=== PATIENT | female | born 1935 | race Caucasian/White ===

== ENCOUNTER 2016-09-03 19:39 | Emergency (ER) | payer BC ==
[2016-09-03 19:45] VITALS: BP 118/67; PULSE 73; TEMP 98; BMI 30.2
--- NOTE | 2016-09-03 19:52 | PDOC ---
History of Present Illness - General History Source: Patient Exam Limitations: No Limitations - History of Present Illness Initial Comments: 09/03/16 19:59 The patient is a 80 year old female with a significant past medical history of COPD, kidney infections, thyroid disease, pneumonia, and GOUT, who presents to the ED with worsening left sided flank pain. She states the flank pain radiates to the lower left quadrant. Patient states the pain is intermittent and is worse when walking. She states she has dark urine as well. She states she took 3 Aleves today with no alleviation. She denies dysuria, frequency, urgency. She denies fever, chills, nausea, vomiting. PAST MEDICAL HISTORY: COPD, kidney infections, thyroid disease, pneumonia, and GOUT PAST SURGICAL HISTORY: no significant history FAMILY HISTORY: no pertinent history SOCIAL HISTORY: Pt lives with family and is employed. MEDICATIONS: reviewed ALLERGIES: As per nursing notes ROS General: No fevers or chills, no weakness, no weight loss HEENT: No change in vision. No sore throat,. No ear pain CardioVascular: No chest pain or shortness of breath Respiratory:No cough, or wheezing. Gastrointestinal: no nausea, vomiting, diarrhea or constipation, No rectal bleeding Genitourinary: No dysuria, hematuria, or frequency. Musculoskeletal: No joint or muscle pain or swelling Back: Left flank pain that radiates to the left lower quadrant. Neurologic: No headache, vertigo, dizziness or loss of consciousness Psychiatric: nor depression Skin: No rashes or easy bruising Endocrine: no increased thirst or abnormal weight change Allergic: no skin or latex allergy All other systems reviewed and normal Exam: General: Well-nourished well-developed individual, no acute distress HEENT: Throat: Normal, tonsils normal, no erythema or exudate Neck: Supple, no meningeal signs, no lymphadenopathy Eyes::Pupils equal reactive and round, extraocular motion intact Chest: Nontender to palpation Cardiac: S1-S2 normal, regular rate and rhythm, no murmurs rubs or gallops Respiratory: Lungs clear to auscultation bilateral Abdomen: Left lower quadrant abdominal tenderness. Soft, nondistended, normal bowel sounds. Back: No cva tenderness. Left flank tenderness. Extremities: Warm, dry, no cyanosis, clubbing, or edema Skin: No rashes Neuro: Alert and oriented x3, nonfocal exam, grossly intact, normal gait Psych: Normal mood and affect <Nolberto Joiner - Last Filed: 09/03/16 19:59> - General History Source: Patient Exam Limitations: No Limitations - History of Present Illness Initial Comments: 09/03/16 22:17 A portion of this note was documented by scribe services under my direction. I have reviewed the details of the note, within reason, and agree with the documentation. The case summary and management plan written by me. CT scan no acute pathology there is some scoliosis of the lower lumbar spine with some spondylosis. There is no obstructive uropathy There is some diverticula but no by diverticulitis The appendix is normal. There is a small stone within the right kidney lower pole that is nonobstructing and a small cyst in the left kidney. Assessment and plan: This is a 8-year-old female who comes complaining of low back left sided flank pain. The patient's workup was negative for renal causes or kidney stones. However patient does have some scoliosis and spondylosis that is most likely the cause of her pain. I recommended the patient continued to take her Aleve twice a day and in addition to that can also take some Tylenol and follow-up with her doctor next week <Pankaj Deras I - Last Filed: 09/03/16 22:21> - General Chief Complaint: Pain, Acute Stated Complaint: LT BACK/FLANK PAIN Time Seen by Provider: 09/03/16 19:51 Past History <Nolberto Joiner - Last Filed: 09/03/16 19:59> - Past Medical History COPD: Yes Disorders: Yes (KIDNEY INFECTIONS) Thyroid Disease: Yes Other medical history: PNEUMONIA, GOUT, - Psycho/Social/Smoking Cessation Hx Anxiety: Yes (PRESENTLY) Suicidal Ideation: No Smoking History: Former smoker Have you smoked in the past 12 months: No Information on smoking cessation initiated: No <Pankaj Deras I - Last Filed: 09/03/16 22:21> - Past Medical History Allergies/Adverse Reactions: Allergies Allergy/AdvReac Type Severity Reaction Status Date / Time No Known Allergies Allergy Unverified 09/03/16 19:41 Home Medications: Ambulatory Orders Aspirin [Ecotrin] 81 mg PO DAILY 09/03/16 Levothyroxine [Synthroid -] 50 mcg PO DAILY 09/03/16 Metoprolol Succinate [Toprol Xl] 50 mg PO DAILY 09/03/16 Review of Systems - Review of Systems Able to Perform ROS?: Yes <Nolberto Joiner - Last Filed: 09/03/16 19:59> *Physical Exam - Vital Signs Last Vital Signs Temp Pulse Resp BP Pulse Ox 98 F 73 18 118/67 98 09/03/16 19:42 09/03/16 19:42 09/03/16 19:42 09/03/16 19:42 09/03/16 19:42 <Nolberto Joiner - Last Filed: 09/03/16 19:59> - Vital Signs Last Vital Signs Temp Pulse Resp BP Pulse Ox 98 F 73 18 118/67 98 09/03/16 19:42 09/03/16 19:42 09/03/16 19:42 09/03/16 19:42 09/03/16 19:42 <Pankaj Deras I - Last Filed: 09/03/16 22:21> ED Treatment Course - LABORATORY CBC & Chemistry Diagram: 09/03/16 20:05 09/03/16 20:05 <Pankaj Deras I - Last Filed: 09/03/16 22:21> *DC/Admit/Observation/Transfer - Attestations Scribe Attestion: 09/03/16 20:01 Documentation prepared by Nolberto Joiner, acting as medical safety director for Pankaj Deras MD. <Nolberto Joiner - Last Filed: 09/03/16 19:59> - Discharge Dispostion Admit: No <Pankaj Deras I - Last Filed: 09/03/16 22:21> Diagnosis at time of Disposition: Left-sided low back pain without sciatica Qualifiers: Chronicity: chronic Qualified Code(s): M54.5 - Low back pain; G89.29 - Other chronic pain - Discharge Dispostion Disposition: HOME Condition at time of disposition: Stable - Referrals Referrals: Luzma Santiago MD [Primary Care Provider] - - Patient Instructions Additional Instructions: For the pain you can continue to take the Aleve 2 tablets twice a day with food don't take on an empty stomach In addition to that you can also take 2 Tylenol every 6 hours if needed. Follow-up with your doctor on Monday if not better. Return to the emergency department immediately with ANY new, persistent or worsening symptoms. Continue any medications as previously prescribed by your physician. You should follow up with your primary doctor as soon as possible regarding today's emergency department visit. . Please make sure your doctor reviews the results of your emergency evaluation. Thank you for coming to the Emergency Department today for your care. It was a pleasure to see you today. Please note that your evaluation is INCOMPLETE until you follow-up with your doctor.
[2016-09-03 20:00] LABS: PH,URINE 5.5 (4.5-8); URINE APPEARANCE Clear; URINE BILIRUBIN 1+ (NEGATIVE); URINE BLOOD Negative (NEGATIVE); URINE COLOR YELLOW; URINE GLUCOSE (UA) Negative (NEGATIVE); URINE KETONE Trace (NEGATIVE); URINE LEUK ESTERASE Trace (NEGATIVE); URINE NITRITE Negative (NEGATIVE); URINE PROTEIN Negative (NEGATIVE); URINE UROBILINOGEN 0.2 E.U/dl (0.2-1.0)
[2016-09-03] MEDS ORDERED: ONDANSETRON 4 MG/2 ML VIAL IVPUSH ONE (20:02)
[2016-09-03] MEDS ORDERED: morphine CARPU-JECT 2 MG/1 ML DISP.SYRIN IVPUSH ONE (20:02)
[2016-09-03] MEDS ORDERED: SODIUM CHLORIDE 1,000 ML IV ONE (20:02)
[2016-09-03] MEDS ORDERED: morphine CARPU-JECT 2 MG/1 ML DISP.SYRIN ONE (20:04)
[2016-09-03] MEDS ORDERED: ONDANSETRON 4 MG/2 ML VIAL ONE (20:05)
[2016-09-03 20:16] LABS: EOSINOPHIL 3.3 % (0-4.5); MCH 27.4 pg (25.7-33.7); MCHC 34.4 g/dl (32.0-36.0); MEAN CELL VOLUME 79.4 fl (80-96); MEAN PLT VOLUME 8.3 fl (7.5-11.1); NEUTROPHILS 52.1 % (42.8-82.8); PLATELET COUNT 305 K/MM3 (134-434); RDW 14.3 % (11.6-15.6); WHITE BLOOD COUNT 8.8 K/mm3 (4.0-10.8)
[2016-09-03 20:37] LABS: ALBUMIN 3.8 g/dl (3.5-5.0); ALK PHOS 74 U/L (32-92); ANION GAP 7 (8-16); CALCIUM 9.4 mg/dl (8.4-10.2); CO2 28 mmol/L (22-28); CREATININE 0.8 mg/dl (0.6-1.3); GLUCOSE,RANDOM 141 mg/dl (74-106); SGOT/AST 32 U/L (10-42); SGPT/ALT 21 U/L (10-40); TOT PROT 6.8 g/dl (6.4-8.3)
[2016-09-03] MEDS ORDERED: AZITHROMYCIN 250 MG TABLET (FP) PO ONE (21:51)
== END 2016-09-03 22:29 | disposition home or self-care (01) ==
LOC: FER 19:39
PROC: 3E033NZ Introduction of Analgesics, Hypnotics, Sedatives into Peripheral Vein, Percutaneous Approach (ICD-10-PCS; principal; 2016-09-03)
PROC: 3E033GC Introduction of Other Therapeutic Substance into Peripheral Vein, Percutaneous Approach (ICD-10-PCS; 2016-09-03)
PROC: 3E0337Z Introduction of Electrolytic and Water Balance Substance into Peripheral Vein, Percutaneous Approach (ICD-10-PCS; 2016-09-03)
DX: M54.5 Low back pain (principal); G89.29 Other chronic pain; Z87.891 Personal history of nicotine dependence; J44.9 Chronic obstructive pulmonary disease, unspecified; F41.9 Anxiety disorder, unspecified; E07.9 Disorder of thyroid, unspecified
CPT/HCPCS: 36415; 74176-TC; 80053; 81003; 85025; 99282-25

== ENCOUNTER 2017-07-29 21:44 | Emergency (ER) | payer BC ==
[2017-07-29 21:52] VITALS: BP 147/89; PULSE 92; TEMP 98.6; BMI 29.5
--- NOTE | 2017-07-29 21:54 | PDOC ---
History of Present Illness - General Chief Complaint: Pain, Acute Stated Complaint: RIGHT UPPER BACK PAIN Time Seen by Provider: 07/29/17 21:49 - History of Present Illness Initial Comments: 07/29/17 22:19 This 81-year-old woman with a history of COPD, several previous episodes of pneumonia, hypothyroidism,HTN and gout presents with a one-day history of right- sided chest pain. Patient describes pain as being worsened with deep breathing and movement, she denies shortness of breath, cough, fever/chills. Patient states that her dog jumped on her upper back/right chest area yesterday; she pushed the dog off. No other trauma/overuse noted. The patient denies lower extremity edema or tenderness. She recently returned from [place] (4 days ago) by airplane. No history of recent surgery/malignancy/thromboembolic disease No nausea/vomiting/diarrhea, no diaphoresis Patient has a history of smoking 3-4 cigarettes per day but has not smoked in many years (significant history of secondhand smoke exposure) Past History - Past Medical History Allergies/Adverse Reactions: Allergies Allergy/AdvReac Type Severity Reaction Status Date / Time No Known Allergies Allergy Verified 07/29/17 21:45 Home Medications: Ambulatory Orders Aspirin [Ecotrin] 325 mg PO DAILY 09/03/16 Levothyroxine [Synthroid -] 50 mcg PO DAILY 09/03/16 Metoprolol Succinate [Toprol Xl] 50 mg PO DAILY 09/03/16 COPD: Yes Disorders: Yes (KIDNEY INFECTIONS) Thyroid Disease: Yes - Suicide/Smoking/Psychosocial Hx Smoking History: Former smoker Have you smoked in the past 12 months: No Information on smoking cessation initiated: No Hx Alcohol Use: No Drug/Substance Use Hx: No Substance Use Type: None Review of Systems - Review of Systems Able to Perform ROS?: Yes Comments:: 12 point review of systems is negative except for what is noted in the history of present illness *Physical Exam - Vital Signs Last Vital Signs Temp Pulse Resp BP Pulse Ox 98.6 F 92 H 18 147/89 93 L 07/29/17 21:47 07/29/17 21:47 07/29/17 21:47 07/29/17 21:47 07/29/17 21:47 - Physical Exam Comments: GENERAL: Adult female, alert and oriented 3, speaking in full sentences, in no acute distress HEAD: Normal with no signs of trauma. EYES: PERRLA, EOMI, sclera anicteric, conjunctiva clear. ENT: Ears normal, nares patent, oropharynx clear without exudates. Moist mucous membranes. NECK: Normal range of motion, supple without lymphadenopathy, JVD, or masses. LUNGS: Breath sounds equal, clear to auscultation bilaterally. No wheezes, and no crackles. CHEST WALL: Generalized tenderness to palpation without step offs of the right anterior chest wall (no crepitus) Tenderness of left chest wall Pain of right anterior chest wall reproduced with movement of right arm and twisting movement of torso HEART:Regular rate and rhythm, normal S1 and S2 without murmur, rub or gallop. ABDOMEN:.normal bowel sounds No guarding,tenderness or rebound.No masses No distention. EXTREMITIES: Normal range of motion, no edema. No clubbing or cyanosis. No erythema, or tenderness. NEUROLOGICAL: Cranial nerves II through XII grossly intact. Normal speech. No focal neurological deficits. MUSCULOSKELETAL: Back non-tender to palpation, no CVA tenderness SKIN: Warm, Dry, normal turgor, no rashes or lesions noted. Portable chest x-ray reveals evidence of COPD but no acute effusion/infiltrates/ pneumothorax Twelve-lead electrocardiogram is performed and interpreted by me: Normal sinus rhythm at 92 bpm with normal axis, intervals and waveforms. No evidence of acute ST or T-wave abnormalities. ED Treatment Course - LABORATORY CBC & Chemistry Diagram: 07/29/17 22:15 07/29/17 22:15 Medical Decision Making - Medical Decision Making As noted above, this 81-year-old woman presents with a one-day history of right- sided chest pain that is pleuritic in nature. She also has pain with movement and tenderness of the chest wall. There is no history of cough, fever or shortness of breath. Although there is mechanism for chest wall strain/ contusion(her dog had jumped up against her chest and upper back) and also she was carrying heavy luggage on the right side a few days ago, she also has relative risk factor for pulmonary embolus(airline trip a few days ago). Therefore, CT angiogram of the chest will be performed to rule out PE CBC/chemistry profile/INR/, cardiac enzymes evaluated Other than moderate prerenal azotemia (BUN 17/creatinine 0.8), there is no significant abnormalities in her laboratory evaluation. CT angiogram of chest performed: No evidence of dissection or pulmonary embolism. Also, there is no other acute process of the lungs evident. Clinical presentation most consistent with chest wall strain/contusion. 30 mg Toradol administered IV for anti-inflammatory effects. Results of the workup discussed with the patient. She should avoid strenuous activity involving upper body for the next several days. She can take [id number] ibuprofen/ naproxen/acetaminophen as needed for pain. She should follow-up with her general doctor within the next 7 days. She should return to the emergency room if she has worsening symptoms. *DC/Admit/Observation/Transfer Diagnosis at time of Disposition: Chest wall muscle strain Qualifiers: Encounter type: initial encounter Qualified Code(s): S29.011A - Strain of muscle and tendon of front wall of thorax, initial encounter - Discharge Dispostion Disposition: HOME Condition at time of disposition: Stable - Referrals Referrals: Luzma Santiago MD [Primary Care Provider] - - Patient Instructions Printed Discharge Instructions: DI for Atypical Chest Pain Additional Instructions: rest, drink plenty of water Motrin/Aleve/acetaminophen as needed for pain Avoid strenuous activity such as lifting, pushing, pulling heavy objects for the next week Follow-up with within 1 week Return to ER if you have persistent pain or develop cough/shortness of breath - Post Discharge Activity
[2017-07-29 22:23] LABS: URINE APPEARANCE Clear; URINE BILIRUBIN Negative (NEGATIVE); URINE BLOOD Negative (NEGATIVE); URINE GLUCOSE (UA) Negative (NEGATIVE); URINE KETONE Negative (NEGATIVE); URINE NITRITE Negative (NEGATIVE); URINE PROTEIN Negative (NEGATIVE); URINE UROBILINOGEN 0.2 (0.2-1.0)
[2017-07-29 22:24] LABS: URINE COLOR YELLOW; URINE LEUK ESTERASE TRACE (NEGATIVE)
[2017-07-29 22:28] LABS: BASO % 0.7 % (0-2.0); EOS % 2.3 % (0-4.5); HEMATOCRIT 46.7 % (32.4-45.2); HEMOGLOBIN 15.8 GM/dl (10.7-15.3); LYMPH % 29.8 % (8-40); MCH 27.8 pg (25.7-33.7); MCHC 33.9 g/dl (32.0-36.0); MEAN PLT VOLUME 8.2 fl (7.5-11.1); MONO % 9.3 % (3.8-10.2); NEUT % 57.9 % (42.8-82.8); PLATELET COUNT 337 K/MM3 (134-434); RBC 5.69 M/mm3 (3.60-5.2); RDW 13.6 % (11.6-15.6); WHITE BLOOD COUNT 8.6 K/mm3 (4.0-10.8)
[2017-07-29 22:43] LABS: ALK PHOS 68 U/L (32-92); ANION GAP 8 (8-16); BLOOD UREA NITROGEN 17 mg/dl (7-18); CALCIUM 9.5 mg/dl (8.4-10.2); CHLORIDE 97 mmol/L (98-107); CO2 31 mmol/L (22-28); CREATININE 0.8 mg/dl (0.6-1.3); GLUCOSE,RANDOM 146 mg/dl (74-106); POTASSIUM 3.8 mmol/L (3.5-5.1); SGOT/AST 38 U/L (10-42); SGPT/ALT 25 U/L (10-40); SODIUM 136 mmol/L (136-145); TOT PROT 7.2 g/dl (6.4-8.3)
[2017-07-29 22:50] LABS: EPI CELLS 0-3 /HPF; URINE RBC 0-2 /hpf (0-3); URINE WBC 0-3 (0-5)
[2017-07-29 23:51] LABS: INR 1.14 (0.82-1.09); PROTHROMBIN TIME (PATIENT) 12.7 SEC (10.2-13.0)
[2017-07-30] MEDS ORDERED: KETOROLAC TROMETHAMINE 30 MG/1 ML VIAL IVPUSH ONE (00:07)
[2017-07-30] MEDS ORDERED: KETOROLAC TROMETHAMINE 30 MG/1 ML VIAL ONE (00:15)
--- NOTE | 2017-07-30 22:36 | EKG ---
Test Reason : Blood Pressure : / mmHG Vent. Rate : 092 BPM Atrial Rate : 092 BPM P-R Int : 206 ms QRS Dur : 074 ms QT Int : 354 ms P-R-T Axes : 069 026 048 degrees QTc Int : 437 ms NORMAL SINUS RHYTHM NORMAL ECG NO PREVIOUS ECGS AVAILABLE Confirmed by JIMENEZ MULLER MD ([id number]) on 07/30/2017 10:35:46 PM Referred By: DESHAWN Confirmed By:JIMENEZ MULLER MD
== END 2017-07-30 00:26 | disposition home or self-care (01) ==
LOC: FER 21:44
PROC: 3E0333Z Introduction of Anti-inflammatory into Peripheral Vein, Percutaneous Approach (ICD-10-PCS; principal; 2017-07-29)
DX: S29.011A Strain of muscle and tendon of front wall of thorax, initial encounter (principal); X58.XXXA Exposure to other specified factors, initial encounter; Y93.89 Activity, other specified; Y92.9 Unspecified place or not applicable; Z87.891 Personal history of nicotine dependence; E07.9 Disorder of thyroid, unspecified; J44.9 Chronic obstructive pulmonary disease, unspecified
CPT/HCPCS: 36415; 71045-TC-FY; 71275-TC; 80053; 81003; 81015; 82550; 84484; 85025; 85610; 93005; 99281-25

== ENCOUNTER 2017-11-19 09:25 | Inpatient (IN) | payer BC ==
[2017-11-19] MEDS ORDERED: PANTOPRAZOLE SODIUM 40 MG VIAL ONE ×3 (09:31→10:43)
[2017-11-19] MEDS ORDERED: PANTOPRAZOLE SODIUM 40 MG VIAL IVPUSH ONE ×2 (09:34→09:36)
[2017-11-19 10:13] VITALS: BMI 29.2
[2017-11-19 10:14] LABS: HEMATOCRIT 43.9 % (32.4-45.2); HEMOGLOBIN 14.1 GM/dl (10.7-15.3); MCH 27.1 pg (25.7-33.7); MCHC 32.1 g/dl (32.0-36.0); MEAN CELL VOLUME 84.5 fl (80-96); MEAN PLT VOLUME 9.2 fl (7.5-11.1); MONO % 7.5 % (3.8-10.2); NEUT % 65.5 % (42.8-82.8); PLATELET COUNT 354 K/MM3 (134-434); RBC 5.19 M/mm3 (3.60-5.2); RDW 13.9 % (11.6-15.6); WHITE BLOOD COUNT 9.7 K/mm3 (4.0-10.8)
--- NOTE | 2017-11-19 10:27 | PDOC ---
History of Present Illness - General Chief Complaint: Vomiting Blood Stated Complaint: RECTAL BLEEDING Time Seen by Provider: 11/19/17 09:33 - History of Present Illness Initial Comments: 11/19/17 09:59 82-year-old female with a history of hypertension, hypothyroidism, peptic ulcer disease more than 10 years ago presents to the emergency department with 3 episodes of bright red hematemesis and 4 episodes of black stool one hour prior to arrival. Patient reports feeling lightheaded at this time. Patient takes a daily full dose of aspirin for the last 2 months. She states she was prescribed baby aspirin daily but has been taking the full dose for intermittent headaches. Over the last 3 days, she has also been taking Aleve PM to help her sleep. Denies similar symptoms in the past. Denies any shortness of breath or chest pain. She took her daily dose of metoprolol 1 hour prior to onset of the symptoms this morning. Does not take blood thinners. Reports intermittent epigastric abdominal pain but none at this time. Denies focal weakness or numbness. Denies lower extremity edema. Denies fevers or chills. Denies recent travel. Past History - Past Medical History Allergies/Adverse Reactions: Allergies Allergy/AdvReac Type Severity Reaction Status Date / Time No Known Allergies Allergy Verified 11/19/17 12:01 Home Medications: Ambulatory Orders Aspirin [Ecotrin] 325 mg PO DAILY 09/03/16 Levothyroxine [Synthroid -] 50 mcg PO DAILY 09/03/16 Metoprolol Succinate [Toprol Xl] 50 mg PO DAILY 09/03/16 COPD: Yes Disorders: Yes (KIDNEY INFECTIONS) Thyroid Disease: Yes - Suicide/Smoking/Psychosocial Hx Smoking History: Former smoker Have you smoked in the past 12 months: No Hx Alcohol Use: No Drug/Substance Use Hx: No Substance Use Type: None Review of Systems - Review of Systems Comments:: 11/19/17 10:27 GENERAL/CONSTITUTIONAL: No fever or chills. +lightheadness HEAD, EYES, EARS, NOSE AND THROAT: No change in vision. No ear pain or discharge. No sore throat. GASTROINTESTINAL: +hematemesis, +melena GENITOURINARY: No dysuria, frequency, or change in urination. CARDIOVASCULAR: No chest pain or shortness of breath. RESPIRATORY: No cough, wheezing, or hemoptysis. MUSCULOSKELETAL: No joint or muscle swelling or pain. No neck or back pain. SKIN: No rash NEUROLOGIC: No headache, vertigo, loss of consciousness, or change in strength/ sensation. ENDOCRINE: No increased thirst. No abnormal weight change. HEMATOLOGIC/LYMPHATIC: No anemia, easy bleeding, or history of blood clots. ALLERGIC/IMMUNOLOGIC: No hives or skin allergy. *Physical Exam - Physical Exam Comments: 11/19/17 10:27 GENERAL: Awake, alert, and fully oriented, in no acute distress. Pale EYES: surgical ENT: +dried blood around lips, dry MM NECK: Normal ROM, supple, no lymphadenopathy, JVD, or masses LUNGS: Breath sounds equal, clear to auscultation bilaterally. No wheezes, and no crackles HEART: Regular rate and rhythm, normal S1 and S2, no murmurs, rubs or gallops ABDOMEN: Soft, nontender, normoactive bowel sounds. No guarding, no rebound. No masses\ RECTAL: No active bleeding, +maroon blood in vault. +nonbleeding nonthrombosed ext hemorrhoid at 1'oclock EXTREMITIES: Normal range of motion, no edema. No clubbing or cyanosis. No cords, erythema, or tenderness NEUROLOGICAL: Normal speech, cranial nerves intact, 5/5 strength in all 4 extremities, normal sensation to light touch in all 4 extremities SKIN: Warm, Dry, normal turgor, no rashes or lesions noted. Heart Score/ECG Review #1 11/19/17 10:39 Twelve-lead EKG was performed and reviewed by me. Normal sinus rhythm, rate 87. Normal axis and intervals. No ST elevations or T-wave inversions. ED Treatment Course - LABORATORY CBC & Chemistry Diagram: 11/20/17 05:30 11/20/17 05:30 - RADIOLOGY Radiology Studies Ordered: Category Date Time Status CHEST X-RAY PORTABLE* [RAD] Stat Radiology 11/19/17 09:33 Ordered - Medications Given in the ED: ED Medications Discontinued Medications Generic Name Dose Route Start Last Admin Trade Name Freq PRN Reason Stop Dose Admin Pantoprazole Sodium 40 mg 11/19/17 09:34 11/19/17 09:30 Protonix Iv IVPUSH 11/19/17 09:35 40 mg ONCE ONE Administration Pantoprazole Sodium 40 mg 11/19/17 09:36 11/19/17 09:40 Protonix Iv IVPUSH 11/19/17 09:37 40 mg ONCE ONE Administration Medical Decision Making - Critical Care Time Total Critical Care Time (minutes): 90 Critical Care Statement: The care of this patient involved high complexity decision making to prevent further life threatening deterioration of the patient 's condition and/or to evaluate & treat vital organ system(s) failure or risk of failure. - Medical Decision Making 11/19/17 10:39 82-year-old female with a history of hypertension, hypothyroidism on daily aspirin 325 and recently started Aleve PM for insomnia presents emergency Department with symptoms concerning for brisk upper GI bleed. Vitals borderline at this time but stable, heart rate is in the 80s and 90s and blood pressures in the low 100 systolic. Tachycardia likely masked by metoprolol pt took 2hrs ago. Patient is pale in appearance with maroon blood in rectal vault. Pt on monitor with 2 PIVs, s/p pantoprazole 80mg on gtt. Airway protected at this time, but low threshold to intubate if any further hematemesis. Case discussed with Dr. Victoria. Initial hgb 14, no need for blood at this time. Getting NS bolus. Pt accepted to Dr. Berry in ICU and case discussed with Dr. Nataliia Coleman who will admit the pt. Case discussed in detail with admitting physician including history, physical exam and ancillary studies. Admitting physician has assumed care for the patient, will follow all pending diagnostics and will complete the evaluation and treatment. *DC/Admit/Observation/Transfer Diagnosis at time of Disposition: Upper gastrointestinal hemorrhage - Discharge Dispostion Condition at time of disposition: Guarded Decision to Admit order: Yes - Referrals - Patient Instructions - Post Discharge Activity - Attestations Physician Attestion: 11/19/17 10:32 I, Dr. Alejandro Leos MD, attest that this document has been prepared under my direction and personally reviewed by me in its entirety. I further attest, that it accurately reflects all work, treatment, procedures and medical decision -making performed by me.
[2017-11-19 11:03] LABS: ALBUMIN 2.9 g/dl (3.5-5.0); ALK PHOS 47 U/L (32-92); ANION GAP 4 MMOL/L (8-16); BILIRUBIN,TOTAL 1.2 mg/dl (0.2-1.0); BLOOD UREA NITROGEN 23 mg/dl (7-18); CALCIUM 8.1 mg/dl (8.4-10.2); CHLORIDE 104 mmol/L (98-107); CO2 29 mmol/L (22-28); CREATININE 0.7 mg/dl (0.6-1.3); GLUCOSE,RANDOM 119 mg/dl (74-106); POTASSIUM 5.3 mmol/L (3.5-5.1); SGOT/AST 26 U/L (10-42); SGPT/ALT 19 U/L (10-40); SODIUM 137 mmol/L (136-145); TOT PROT 5.4 g/dl (6.4-8.3)
[2017-11-19] MEDS: PANTOPRAZOLE SODIUM 80 MG in SODIUM CHLORIDE 100 ML IVPB SCH ×2 (11:30→20:00)
[2017-11-19 11:52] LABS: LIPASE 112 U/L (73-393)
[2017-11-19 12:01] LABS: ACTIVATED PTT 25.5 SECONDS (25.2-36.5)
[2017-11-19 12:06] LABS: INR 1.23 (0.82-1.09); PROTHROMBIN TIME (PATIENT) 13.7 SEC (10.2-13.0)
[2017-11-19] MEDS ORDERED: ERYTHROMYCIN *INJECTION* 500 MG VIAL IVPB ONE (13:46)
[2017-11-19] MEDS ORDERED: METOCLOPRAMIDE HCL INJECTION 10 MG/2 ML VIAL IVPUSH ONE (13:58)
--- NOTE | 2017-11-19 13:58 | CON.GI ---
Consult Consult Specialty:: GI Referred by:: Dr. Peguero Reason for Consultation:: Hematemesis - History of Present Illness Chief Complaint: Vomiting blood and rectal bleeding History of Present Illness: 82F seen initially at the [facility] for evaluation of dark bowel movements followed by maroon rectal bleeding. This was followed by lightheadeness and vomiting of dark blood. She takes ASA 81mg daily and has also been taking ASA 325mg regularly for headaches and Aleve PM to help her sleep nightly. She gives a history of PUD as well years ago, diagnosed by upper endoscopy. She thinks she had colonoscopy 2 years ago, possibly with Dr. Castro, and that colon polyps were found. At the [facility], triage vitals revealed P: 73 BP : 118/67. She is on beta aaliyah, which she took earlier in the morning and was noted to be tachycardic with HR to 98 at the [facility] with Hgb 14.1, BUN/Cr: 23/0.7. She currently denies any abdominal pain. She was placed on PPI drip. - History Source History Provided By: Patient, Family Member (daughter present at bedside) - Past Medical History Cardio/Vascular: Yes: Other ("irregular heart beat") Pulmonary: Yes: COPD Gastrointestinal: Yes: Diverticulosis (by CT scan imaging 2016), Peptic Ulcer Disease (by patient history), Other (Large hiatal hernia: by recent CTA of the abdomen performed 08/14) Renal/: Yes: Other (Nephrolithiasis) Endocrine: Yes: Hypothyroidism - Past Surgical History Additional Surgical History: Partial thyroidectomy, right leg surgery secondary to accident - Alcohol/Substance Use Hx Alcohol Use: No - Smoking History Smoking history: Current some day smoker Have you smoked in the past 12 months: Yes - Social History Usual Living Arrangement: Alone () ADL: Family Assistance Place of : [facility] History of Recent Travel: No Home Medications - Allergies Allergies/Adverse Reactions: Allergies Allergy/AdvReac Type Severity Reaction Status Date / Time No Known Allergies Allergy Verified 11/19/17 12:01 - Home Medications Home Medications: Ambulatory Orders Aspirin [Ecotrin] 325 mg PO DAILY 09/03/16 Levothyroxine [Synthroid -] 50 mcg PO DAILY 09/03/16 Metoprolol Succinate [Toprol Xl] 50 mg PO DAILY 09/03/16 Family Disease History - Family Disease History Family Disease History: Other: Father (: complications from bleeding post procedure), Mother (: 46: colon cancer), Brother (2, 1 from [place]), Sister (1, from diabetic complications), Son (1, healthy), Daughter (1, healthy) Review of Systems - Review of Systems Constitutional: denies: Fever, Lethargy, Unintentional Wgt. Loss Respiratory: reports: Cough (occasional). denies: SOB Gastrointestinal: reports: Melena, Rectal Bleeding, Vomiting Blood Physical Exam-GI Vital Signs: Vital Signs Temperature 97.3 F L 11/19/17 12:40 Pulse Rate 72 11/19/17 12:40 Respiratory Rate 16 11/19/17 12:40 Blood Pressure 123/70 11/19/17 12:40 O2 Sat by Pulse Oximetry (%) 99 11/19/17 11:32 Constitutional: Yes: Calm Eyes: No: Sclera Icterus Cardiovascular: Yes: Regular Rate and Rhythm. No: Murmur Respiratory: Yes: CTA Bilaterally Gastrointestinal Inspection: No: Distention, Hernia, Scars ...Auscultate: Yes: Normoactive Bowel Sounds ...Palpate: No: Hepatomegaly, Splenomegaly, Tenderness ...Percussion: No: Tympanitic Edema: No (No LE edema) Neurological: Yes: Alert, Oriented Labs: CBC, BMP 11/19/17 09:40 11/19/17 10:31 INR, PTT INR 1.23 (0.82-1.09) H 11/19/17 11:20 Problem List - Problems (1) Upper gastrointestinal hemorrhage Assessment/Plan: UGIB suspected to be precipitated by increased NSAID use Discussed with Ms. Cuellar and her daughter who was present at bedside Discussed upper endoscopy for further evaluation. Explained that intubation would likely be necessary to protect the airway as she was vomiting blood. Discussed potential risks of the procedure like but not limited to bleeding, perforation requiring surgery to repair, infection, sedation medication effects , all of which could be potentially life threatening. She has agreed to the procedure. For now: NPO IV hydration Repeat CBC/CMP ordered for now Continue PPI drip Keep [facility] on standby ICU care Code(s): K92.2 - GASTROINTESTINAL HEMORRHAGE, UNSPECIFIED
--- NOTE | 2017-11-19 14:58 | CONSULT ---
Consult Consult Specialty:: CCM - History of Present Illness Chief Complaint: hematemesis, melena History of Present Illness: Briefly Ms Maldonado is a 82 y/o woman with hx of COPD, PUD, diverticulosis who presented to ED with UGIB. Pt relates was taking near daily ASA 325 for pain, as well as alleve intermittently. This am pt felt dizzy, unwell. Had large dark marroon melonic stool, and then hematemesis of dark coffee ground with large clots. She had no chest pain, no syncope, no fall, no dyspnea. She came immediately to ED, where she was pale, mildly tachycardic (on BB). Her hgb was 14. She was started on PPI gtt, she was transferred to [facility] ICU as no GI service avail for EGD at [place]. Pt transported with out incident. - History Source History Provided By: Patient, Family Member Limitations to Obtaining History: No Limitations - Past Medical History Cardio/Vascular: Yes: Other ("irregular heart beat") Pulmonary: Yes: COPD Gastrointestinal: Yes: Diverticulosis (by CT scan imaging 2016), Peptic Ulcer Disease (by patient history), Other (Large hiatal hernia: by recent CTA of the abdomen performed 08/14) Renal/: Yes: Other (Nephrolithiasis) Endocrine: Yes: Hypothyroidism - Past Surgical History Additional Surgical History: Partial thyroidectomy, right leg surgery secondary to accident - Alcohol/Substance Use Hx Alcohol Use: No - Smoking History Smoking history: Current some day smoker Have you smoked in the past 12 months: Yes - Social History Usual Living Arrangement: Alone () ADL: Family Assistance History of Recent Travel: No Home Medications - Allergies Allergies/Adverse Reactions: Allergies Allergy/AdvReac Type Severity Reaction Status Date / Time No Known Allergies Allergy Verified 11/19/17 12:01 - Home Medications Home Medications: Ambulatory Orders Aspirin [Ecotrin] 325 mg PO DAILY 09/03/16 Levothyroxine [Synthroid -] 50 mcg PO DAILY 09/03/16 Metoprolol Succinate [Toprol Xl] 50 mg PO DAILY 09/03/16 Home Medications (free text): frequent alleve Family Disease History - Family Disease History Family Disease History: Other: Father (: complications from bleeding post procedure), Mother (: 46: colon cancer), Brother (2, 1 from [place]), Sister (1, from diabetic complications), Son (1, healthy), Daughter (1, healthy) Review of Systems Findings/Remarks: Negative 12 pt review, except as per HPI Physical Exam Vital Signs: Vital Signs Temperature 98.6 F 11/19/17 13:08 Pulse Rate 90 11/19/17 13:08 Respiratory Rate 18 11/19/17 13:08 Blood Pressure 146/74 11/19/17 13:08 O2 Sat by Pulse Oximetry (%) 99 11/19/17 11:32 Constitutional: Yes: Well Nourished, Calm Eyes: Yes: Conjunctiva Clear, PERRL HENT: Yes: Atraumatic, Normocephalic Neck: Yes: Supple, Trachea Midline Cardiovascular: Yes: Regular Rate and Rhythm, S1, S2 Respiratory: Yes: CTA Bilaterally. No: Accessory Muscle Use Gastrointestinal: Yes: Normal Bowel Sounds, Soft. No: Tenderness, Epigastrium, Tenderness, Rebound ...Rectal Exam: Yes: Other (melena) Edema: No Labs: CBC, BMP 11/19/17 09:40 11/19/17 10:31 Imaging - Results Chest X-ray: Report Reviewed, Image Reviewed (no infiltrate) Problem List - Problems (1) Upper gastrointestinal hemorrhage Code(s): K92.2 - GASTROINTESTINAL HEMORRHAGE, UNSPECIFIED Assessment/Plan [facility] A/ 82 y/o woman with hx of PUD and diverticulosis now with hematemesis and melena transferred for EGD with Dr Victoria P/ -PPI gtt -serial CBC -maintain adequate access, 2 x 18 -EGD in OR today -NPO -restart meds as able post procedure -ICU monitoring -SCD Pana ACNP [id number] 35min CCT
[2017-11-19 15:17] LABS: BASO % 0.7 % (0-2.0); EOS % 0.5 % (0-4.5); HEMATOCRIT 35.1 % (32.4-45.2); HEMOGLOBIN 11.8 GM/dL (10.7-15.3); LYMPH % 19.4 % (8-40); MCHC 33.6 g/dl (32.0-36.0); MEAN CELL VOLUME 83.3 fl (80-96); MEAN PLT VOLUME 8.1 fl (7.5-11.1); MONO % 7.6 % (3.8-10.2); NEUT % 71.8 % (42.8-82.8); PLATELET COUNT 253 K/MM3 (134-434); RBC 4.21 M/mm3 (3.60-5.2); RDW 14.5 % (11.6-15.6); WHITE BLOOD COUNT 8.7 K/mm3 (4.0-10.0)
[2017-11-19] MEDS ORDERED: ONDANSETRON 4 MG/2 ML VIAL ONE (16:03)
[2017-11-19] MEDS ORDERED: DEXAMETHASONE SOD PHOSPHATE 10 MG/1 ML VIAL ONE (16:03)
[2017-11-19 16:10] LABS: ANION GAP 3 MMOL/L (8-16); BLOOD UREA NITROGEN 22 mg/dL (7-18); CALCIUM 7.9 mg/dL (8.5-10.1); CHLORIDE 108 mmol/L (98-107); CO2 31 mmol/L (21-32); CREATININE 0.5 mg/dL (0.55-1.3); GLUCOSE,RANDOM 85 mg/dL (74-106); SODIUM 141 mmol/L (136-145)
--- NOTE | 2017-11-19 16:29 | HP ---
Admitting History and Physical - Primary Care Physician PCP: Luzma Santiago - Admission Chief Complaint: melena, hematemesis History of Present Illness: since this am has had several episodes of vomiting blood and having melenotic/ bloody stools. has been taking ASA 325 mg daily for headaches and lately Advil PM for sleep. came in feeling lightheaded. 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) Pulmonary: Yes: COPD Gastrointestinal: Yes: Diverticulosis (by CT scan imaging 2016), Peptic Ulcer Disease (by patient history), Other (Large hiatal hernia: by recent CTA of the abdomen performed 08/14) Renal/: Yes: Other (Nephrolithiasis) Endocrine: Yes: Hypothyroidism - Past Surgical History Additional Past Surgical History: l thyroid lobectomy for large thyroid nodule in - Smoking History Smoking history: Current some day smoker Have you smoked in the past 12 months: Yes - Alcohol/Substance Use Hx Alcohol Use: No - Social History ADL: Family Assistance History of Recent Travel: No Home Medications - Allergies Allergies/Adverse Reactions: Allergies Allergy/AdvReac Type Severity Reaction Status Date / Time No Known Allergies Allergy Verified 11/19/17 12:01 - Home Medications Home Medications: Ambulatory Orders Aspirin [Ecotrin] 325 mg PO DAILY 09/03/16 Levothyroxine [Synthroid -] 50 mcg PO DAILY 09/03/16 Metoprolol Succinate [Toprol Xl] 50 mg PO DAILY 09/03/16 Family Disease History - Family Disease History Family Disease History: Other: Father (: complications from bleeding post procedure), Mother (: 46: colon cancer), Brother (2, 1 from [place]), Sister (1, from diabetic complications), Son (1, healthy), Daughter (1, healthy) Review of Systems - Review of Systems Constitutional: reports: Weakness Eyes: reports: No Symptoms HENT: reports: No Symptoms Neck: reports: No Symptoms Cardiovascular: reports: No Symptoms Respiratory: reports: No Symptoms Gastrointestinal: reports: Melena, Vomiting Blood Genitourinary: reports: No Symptoms Musculoskeletal: reports: No Symptoms Neurological: reports: No Symptoms Endocrine: reports: No Symptoms Physical Examination Vital Signs: Vital Signs Temperature 98.6 F 11/19/17 13:08 Pulse Rate 90 11/19/17 13:08 Respiratory Rate 18 11/19/17 13:08 Blood Pressure 146/74 11/19/17 13:08 O2 Sat by Pulse Oximetry (%) 99 11/19/17 11:32 Constitutional: Yes: Well Nourished, No Distress, Calm Eyes: Yes: Conjunctiva Clear, EOM Intact HENT: Yes: Normocephalic Neck: Yes: Trachea Midline Cardiovascular: Yes: Regular Rate and Rhythm Respiratory: Yes: CTA Bilaterally Gastrointestinal: Yes: Normal Bowel Sounds, Soft, Hyperactive Bowel Sounds Musculoskeletal: Yes: WNL Extremities: Yes: WNL Edema: No Peripheral Pulses WNL: Yes Neurological: Yes: WNL Labs: CBC, BMP 11/19/17 15:02 11/19/17 15:02 Imaging - Results Chest X-ray: Report Reviewed Problem List - Problems (1) Hypothyroidism Code(s): E03.9 - HYPOTHYROIDISM, UNSPECIFIED Qualifiers: Hypothyroidism type: acquired Qualified Code(s): E03.9 - Hypothyroidism, unspecified (2) COPD (chronic obstructive pulmonary disease) Code(s): J44.9 - CHRONIC OBSTRUCTIVE PULMONARY DISEASE, UNSPECIFIED Qualifiers: COPD type: unspecified COPD Qualified Code(s): J44.9 - Chronic obstructive pulmonary disease, unspecified (3) Upper gastrointestinal hemorrhage Code(s): K92.2 - GASTROINTESTINAL HEMORRHAGE, UNSPECIFIED Assessment/Plan admit to ICU currently in endo for EGD iv PPI NPO for now will have long discussion with pt regarding not using NSAIDs or ASA in the future unless strong indication by doctor approved.
--- NOTE | 2017-11-19 17:17 | PN ---
Progress Note (short form) - Note Progress Note: EGD report left in procedural section of physical chart and to be scanned into [employer] Problem List - Problems (1) Upper gastrointestinal hemorrhage Code(s): K92.2 - GASTROINTESTINAL HEMORRHAGE, UNSPECIFIED
[2017-11-19 20:20] LABS: HEMATOCRIT 36.7 % (32.4-45.2); HEMOGLOBIN 12.3 GM/dL (10.7-15.3); MCH 27.8 pg (25.7-33.7); MCHC 33.4 g/dl (32.0-36.0); MEAN CELL VOLUME 83.1 fl (80-96); MEAN PLT VOLUME 8.3 fl (7.5-11.1); PLATELET COUNT 272 K/MM3 (134-434); RBC 4.42 M/mm3 (3.60-5.2); RDW 14.5 % (11.6-15.6); WHITE BLOOD COUNT 7.9 K/mm3 (4.0-10.0)
[2017-11-20] MEDS: PANTOPRAZOLE SODIUM 80 MG in SODIUM CHLORIDE 100 ML IVPB SCH ×3 (05:32→16:00)
[2017-11-20 05:52] LABS: BASO % 0.3 % (0-2.0); HEMATOCRIT 32.6 % (32.4-45.2); MCHC 33.7 g/dl (32.0-36.0); MEAN PLT VOLUME 8.3 fl (7.5-11.1); MONO % 6.9 % (3.8-10.2); NEUT % 73.8 % (42.8-82.8); PLATELET COUNT 247 K/MM3 (134-434); RBC 3.93 M/mm3 (3.60-5.2); RDW 14.3 % (11.6-15.6); WHITE BLOOD COUNT 5.6 K/mm3 (4.0-10.0)
[2017-11-20 06:30] LABS: ALBUMIN 2.9 g/dl (3.4-5.0); ALK PHOS 56 U/L (45-117); ANION GAP 3 MMOL/L (8-16); BILIRUBIN,TOTAL 0.7 mg/dL (0.2-1); BLOOD UREA NITROGEN 15 mg/dL (7-18); CALCIUM 8.3 mg/dL (8.5-10.1); CHLORIDE 104 mmol/L (98-107); CO2 32 mmol/L (21-32); CREATININE 0.5 mg/dL (0.55-1.3); GLUCOSE,RANDOM 108 mg/dL (74-106); MAGNESIUM 1.8 mg/dL (1.8-2.4); PHOSPHOROUS 3.7 mg/dL (2.5-4.9); POTASSIUM 4.7 mmol/L (3.5-5.1); SGOT/AST 26 U/L (15-37); SGPT/ALT 20 U/L (13-61); SODIUM 139 mmol/L (136-145); TOT PROT 5.8 g/dl (6.4-8.2)
--- NOTE | 2017-11-20 08:40 | PN ---
Progress Note (short form) - Note Progress Note: no complaints CBC, BMP 11/20/17 05:30 11/20/17 05:30 Vital Signs Period Temp Pulse Resp BP Sys/Maynard Pulse Ox Last 24 Hr 97.3 F-98.6 F 67-98 15-20 94-147/51-78 94-100 S1S2 RRR Lungs occ exp.wheezing abd soft +BS non tender no edema aaox3 nonfocal IMP admitted for upper GI bleed/bleeding ulcer has been on NSAIDs and ASA s/p EGD yesterday no further hematemesis last melenotic stool yesterday evening advance diet if ok with PPI no NSAID, no ASA COPD add spiriva prn albuterol HTN/Tachycardia in past resume toprol tomorrow hypothyroidism cont synthroid Problem List - Problems (1) Hypothyroidism Code(s): E03.9 - HYPOTHYROIDISM, UNSPECIFIED Qualifiers: Hypothyroidism type: acquired Qualified Code(s): E03.9 - Hypothyroidism, unspecified (2) COPD (chronic obstructive pulmonary disease) Code(s): J44.9 - CHRONIC OBSTRUCTIVE PULMONARY DISEASE, UNSPECIFIED Qualifiers: COPD type: unspecified COPD Qualified Code(s): J44.9 - Chronic obstructive pulmonary disease, unspecified (3) Upper gastrointestinal hemorrhage Code(s): K92.2 - GASTROINTESTINAL HEMORRHAGE, UNSPECIFIED
[2017-11-20] MEDS ORDERED: PT OWN MED DRAWER 7, Y5N ONE ×2 (09:05→14:24)
[2017-11-20] MEDS: LEVOTHYROXINE NA 50 MCG TABLET (FP) PO SCH (09:37)
[2017-11-20] MEDS: ALBUTEROL SO4 0.083% IH SOL 2.5 MG/3 ML VIAL.NEB. NEB PRN (10:47)
--- NOTE | 2017-11-20 11:55 | PN ---
Teaching Attending Note Name of Resident: Dora Meza ATTENDING PHYSICIAN STATEMENT I saw and evaluated the patient. I reviewed the resident's note and discussed the case with the resident. I agree with the resident's findings and plan as documented. SUBJECTIVE: Patient seen and examined in the ICU. Awake and alert. No occult bleeding noted overnight. No CP or SOB. No abdominal pain. EGD results noted: Heater probe of large ulcer of the gastric body. Intake & Output 11/17/17 11/18/17 11/19/17 11/20/17 23:59 23:59 23:59 23:59 Intake Total 1900 120 Balance 1900 120 Weight 165 lb 5.547 oz Last Vital Signs Temp Pulse Resp BP Pulse Ox 98.1 F 77 16 105/46 L 99 11/20/17 10:00 11/20/17 10:00 11/20/17 10:00 11/20/17 10:00 11/20/17 08:00 Active Medications Albuterol Sulfate (Ventolin 0.083% Nebulizer Soln -) 1 amp NEB Q4H PRN PRN Reason: SHORT OF BREATH/WHEEZING Last Admin: 11/20/17 10:47 Dose: 1 amp Erythromycin Lactobionate (Erythromycin Injection -) 250 mg IVPB ONCE ONE Stop: 11/19/17 13:47 Last Admin: 11/19/17 14:14 Dose: Not Given Pantoprazole Sodium 80 mg/ (Sodium Chloride) 100 mls @ 10 mls/hr IVPB Q10H CARLYN Last Admin: 11/20/17 09:37 Dose: 10 mls/hr Levothyroxine Sodium (Synthroid -) 50 mcg PO DAILY CARLYN Last Admin: 11/20/17 09:37 Dose: 50 mcg Tiotropium [place] (Spiriva Respimat) 2 puff IH DAILY CARLYN Constitutional: Yes: Awake and alert, NAD Eyes: Yes: Conjunctiva Clear HENT: Yes: Atraumatic, Normocephalic Neck: Yes: Supple, Trachea Midline Cardiovascular: Yes: Regular Rate and Rhythm, S1, S2 Respiratory: Yes: CTA Bilaterally. No: Accessory Muscle Use Gastrointestinal: Yes: Normal Bowel Sounds, Soft. No: Tenderness, Epigastrium, Tenderness, Rebound ...Rectal Exam: Yes: Other (melena) Edema: No Labs: Laboratory Results - last 24 hr 09/11/19/17 11/19/17 09:40 09:40 11:20 WBC RBC Hgb Hct MCV MCH MCHC RDW Plt Count MPV Absolute Neuts (auto) Neutrophils % Lymphocytes % Monocytes % Eosinophils % Basophils % Nucleated RBC % PT with INR 13.7 H INR 1.23 H PTT (Actin FS) 25.5 Sodium Potassium Chloride Carbon Dioxide Anion Gap BUN Creatinine Creat Clearance w eGFR Random Glucose Calcium Phosphorus Magnesium Total Bilirubin AST ALT Alkaline Phosphatase Total Protein Albumin Blood Type O POSITIVE O POSITIVE Antibody Screen Negative Crossmatch See Detail See Detail 11/19/17 11/19/17 11/19/17 15:02 15:02 20:08 WBC 8.7 7.9 RBC 4.21 4.42 Hgb 11.8 12.3 Hct 35.1 36.7 MCV 83.3 83.1 MCH 28.0 27.8 MCHC 33.6 33.4 RDW 14.5 14.5 Plt Count 253 272 MPV 8.1 8.3 Absolute Neuts (auto) 6.3 Neutrophils % 71.8 Lymphocytes % 19.4 Monocytes % 7.6 Eosinophils % 0.5 Basophils % 0.7 Nucleated RBC % 0 PT with INR INR PTT (Actin FS) Sodium 141 Potassium 5.0 Chloride 108 H Carbon Dioxide 31 Anion Gap 3 L BUN 22 H Creatinine 0.5 L Creat Clearance w eGFR > 60 Random Glucose 85 Calcium 7.9 L Phosphorus Magnesium Total Bilirubin AST ALT Alkaline Phosphatase Total Protein Albumin Blood Type Antibody Screen Crossmatch 11/20/17 11/20/17 05:30 05:30 WBC 5.6 RBC 3.93 Hgb 11.0 Hct 32.6 MCV 83.0 MCH 28.0 MCHC 33.7 RDW 14.3 Plt Count 247 MPV 8.3 Absolute Neuts (auto) 4.1 Neutrophils % 73.8 Lymphocytes % 19.0 Monocytes % 6.9 Eosinophils % 0.0 D Basophils % 0.3 Nucleated RBC % 0 PT with INR INR PTT (Actin FS) Sodium 139 Potassium 4.7 Chloride 104 Carbon Dioxide 32 Anion Gap 3 L BUN 15 Creatinine 0.5 L Creat Clearance w eGFR > 60 Random Glucose 108 H Calcium 8.3 L Phosphorus 3.7 Magnesium 1.8 Total Bilirubin 0.7 AST 26 ALT 20 Alkaline Phosphatase 56 Total Protein 5.8 L Albumin 2.9 L Blood Type Antibody Screen Crossmatch Problem List - Problems (1) Upper gastrointestinal hemorrhage Code(s): K92.2 - GASTROINTESTINAL HEMORRHAGE, UNSPECIFIED Assessment/Plan Upper GI Bleed due to large gastric ulcer: S/P heater probe GI bleed due to NSAID/ASA chronic use PPI drip per GI O2 as needed Normal transfusion thresholds SCDs Avoid NSAIDS PO when OK with GI GI requesting [address] Berry Critical care time spent in reviewing chart, evaluating patient and formulating plan - 36 minutes.
--- NOTE | 2017-11-20 12:12 | PN ---
GI Progress Note Subjective: No overt bleeding Dark BM earlier last night No abdominal pain - Objective Vital Signs: Vital Signs Temperature 98.0 F 11/20/17 12:00 Pulse Rate 87 11/20/17 12:00 Respiratory Rate 19 11/20/17 12:00 Blood Pressure 118/77 11/20/17 12:00 O2 Sat by Pulse Oximetry (%) 99 11/20/17 08:00 Constitutional: Calm Eyes: No: Sclera Icterus Cardiovascular: Yes: Regular Rate and Rhythm Respiratory: Yes: CTA Bilaterally Gastrointestinal Inspection: No: Distention ...Auscultate: Yes: Normoactive Bowel Sounds ...Palpate: No: Tenderness Edema: No (No LE edema) Neurological: Yes: Alert, Oriented Labs: CBC, BMP 11/20/17 05:30 11/20/17 05:30 INR, PTT INR 1.23 (0.82-1.09) H 11/19/17 11:20 Hepatic Panel Total Bilirubin 0.7 mg/dL (0.2-1) 11/20/17 05:30 AST 26 U/L (15-37) 11/20/17 05:30 ALT 20 U/L (13-61) 11/20/17 05:30 Alkaline Phosphatase 56 U/L (45-117) 11/20/17 05:30 Albumin 2.9 g/dl (3.4-5.0) L 11/20/17 05:30 Problem List - Problems (1) Upper gastrointestinal hemorrhage Assessment/Plan: Duodenal ulcer with flat red spot oozing blood. S/P heater probe therapy Clear liquids Await pathology results. If h. pylori + would treat Avoid NSAIDs Continue PPI Drip. Monitor magnesium levels while on drip Monitor for active bleeding. If remainfs stable downgrade tomorrow, sooner if ICU bed is needed Code(s): K92.2 - GASTROINTESTINAL HEMORRHAGE, UNSPECIFIED
--- NOTE | 2017-11-20 12:18 | EKG ---
Test Reason : Blood Pressure : / mmHG Vent. Rate : 087 BPM Atrial Rate : 087 BPM P-R Int : 180 ms QRS Dur : 074 ms QT Int : 370 ms P-R-T Axes : 026 043 057 degrees QTc Int : 445 ms NORMAL SINUS RHYTHM NORMAL ECG WHEN COMPARED WITH ECG OF 29-JUL-2017 22:23, NO SIGNIFICANT CHANGE WAS FOUND Confirmed by NAN LOVELACE MD ([id number]) on 11/20/2017 12:18:18 PM Referred By: NIC COLE Confirmed By:NAN LOVELACE MD
[2017-11-20] MEDS: TIOTROPIUM BROMIDE 2.5 MCG (SPIRIVA) RESPIMAT INHALER IH SCH (14:21)
--- NOTE | 2017-11-20 14:58 | PN ---
Physical Exam: OVERNIGHT: - EGD with Dr Greer. Noted large ulcer in gastric body with oozing blood, multiple small ulcers and erosions in antrum, sliding hiatal hernia. No active bleeding found. Now s/p cauterization of oozing ulcer SUBJECTIVE: Patient seen and examined - c/o feeling hungry, would like to eat - Some anxiety about being in the hospital - Lightheadedness resolved OBJECTIVE: Vital Signs Period Temp Pulse Resp BP Sys/Maynard Pulse Ox Last 24 Hr 98.0 F-98.6 F 68-89 15-20 94-147/41-77 99-99 General: Comfortable, no acute distress HEENT: PERRL, EOMI, MMM, voice normal, normal neck ROM, no LAD Cards: RRR, no murmur appreciated Pulm: Comfortable on room air, clear to auscultation bilaterally Abd: Soft, nontender, nondistended : No CVA tenderness Rectal: Normal tone, no blood noted, no perianal lesions Ext: Atraumatic. No LE edema. ROM intact. Strength 5/5 and equal bilaterally Vasc: Extremities WWP. Palpable radial and pedal pulses bilaterally Skin: Normal color, no rashes or lesions Neuro: A&Ox3, CN grossly intact, normal speech, motor/sensory grossly intact and symmetric Psych: Mood appropriate to situation Laboratory Results - last 24 hr 11/19/17 11/19/17 11/19/17 09:40 09:40 15:02 WBC 8.7 RBC 4.21 Hgb 11.8 Hct 35.1 MCV 83.3 MCH 28.0 MCHC 33.6 RDW 14.5 Plt Count 253 MPV 8.1 Absolute Neuts (auto) 6.3 Neutrophils % 71.8 Lymphocytes % 19.4 Monocytes % 7.6 Eosinophils % 0.5 Basophils % 0.7 Nucleated RBC % 0 Sodium Potassium Chloride Carbon Dioxide Anion Gap BUN Creatinine Creat Clearance w eGFR Random Glucose Calcium Phosphorus Magnesium Total Bilirubin AST ALT Alkaline Phosphatase Total Protein Albumin Blood Type O POSITIVE Antibody Screen Negative Crossmatch See Detail See Detail 11/19/17 11/19/17 11/20/17 15:02 20:08 05:30 WBC 7.9 5.6 RBC 4.42 3.93 Hgb 12.3 11.0 Hct 36.7 32.6 MCV 83.1 83.0 MCH 27.8 28.0 MCHC 33.4 33.7 RDW 14.5 14.3 Plt Count 272 247 MPV 8.3 8.3 Absolute Neuts (auto) 4.1 Neutrophils % 73.8 Lymphocytes % 19.0 Monocytes % 6.9 Eosinophils % 0.0 D Basophils % 0.3 Nucleated RBC % 0 Sodium 141 Potassium 5.0 Chloride 108 H Carbon Dioxide 31 Anion Gap 3 L BUN 22 H Creatinine 0.5 L Creat Clearance w eGFR > 60 Random Glucose 85 Calcium 7.9 L Phosphorus Magnesium Total Bilirubin AST ALT Alkaline Phosphatase Total Protein Albumin Blood Type Antibody Screen Crossmatch 11/20/17 05:30 WBC RBC Hgb Hct MCV MCH MCHC RDW Plt Count MPV Absolute Neuts (auto) Neutrophils % Lymphocytes % Monocytes % Eosinophils % Basophils % Nucleated RBC % Sodium 139 Potassium 4.7 Chloride 104 Carbon Dioxide 32 Anion Gap 3 L BUN 15 Creatinine 0.5 L Creat Clearance w eGFR > 60 Random Glucose 108 H Calcium 8.3 L Phosphorus 3.7 Magnesium 1.8 Total Bilirubin 0.7 AST 26 ALT 20 Alkaline Phosphatase 56 Total Protein 5.8 L Albumin 2.9 L Blood Type Antibody Screen Crossmatch Active Medications Generic Name Dose Route Start Last Admin Trade Name Freq PRN Reason Stop Dose Admin Albuterol Sulfate 1 amp 11/20/17 08:38 11/20/17 10:47 Ventolin 0.083% Nebulizer Soln - NEB 1 amp Q4H PRN Administration SHORT OF BREATH/WHEEZING Erythromycin Lactobionate 250 mg 11/19/17 13:46 11/19/17 14:14 Erythromycin Injection - IVPB 11/19/17 13:47 Not Given ONCE ONE Pantoprazole Sodium 80 mg/ 100 mls @ 10 mls/hr 11/19/17 10:00 11/20/17 09:37 Sodium Chloride IVPB 10 mls/hr Q10H CARLYN Administration 8 MG/HR Levothyroxine Sodium 50 mcg 11/20/17 10:00 11/20/17 09:37 Synthroid - PO 50 mcg DAILY CARLYN Administration Tiotropium [place] 2 puff 11/20/17 11:00 11/20/17 14:21 Spiriva Respimat IH 2 puff DAILY CARLYN Administration ASSESSMENT/PLAN: Lela bee is an 82yo woman iwth a PMH of HTN, COPD, peptic ulcer disease , diverticulosis, hypothyroidism admitted to the ICU for an upper GI bleed with gross BRBPR and melena yesterday. She is now s/p EGD with cauterization of a gastric ulcer noted to be oozing blood, and she has been stable since admission without any additional episodes of gross bleeding. Neuro: - No issues, A&O. - Denies pain. CV: - h/o HTN. Currently holding home metoprolol due to concern for blunting cardiac response to blood loss. Has been wnl since admission, but will restart home meds if needed. Pulm: - h/o COPD. - Continue home tiotropium daily, albuterol Q4 PRN. - Comfortable on room air. Heme: - Hgb stable at 11.0. - Continue serial monitoring, CBC Q8. GI: - s/p upper GI bleed. - EGD completed, large gastric body ulcer and multiple small ulcers/erosions in antrum noted, no active bleeding. - Continue pantoprazole drip - GI following. OK to start clears today per Dr Greer Renal: - No issues ID: - No issues Endo: - No issues Psych: - Reports anxiety - No meds currently Musc: - OOB as tolerated PPx: - Low DVT risk, SCD's - Pantoprazole drip FEN: - Clear liquids - No IVF, SLIV - Replete lytes PRN Dispo: - Monitor in ICU - Plan to transfer to floor tomorrow if stable overnight Seen and discussed with Dr Berry. Dora Meza PGY1 Visit type - Emergency Visit Emergency Visit: No - New Patient This patient is new to me today: Yes Date on this admission: 11/20/17 - Critical Care Critical Care patient: Yes Total Critical Care Time (in minutes): 45 Critical Care Statement: The care of this patient involved high complexity decision making to prevent further life threatening deterioration of the patient 's condition and/or to evaluate & treat vital organ system(s) failure or risk of failure.
--- NOTE | 2017-11-20 19:06 | PN ---
Progress Note (short form) - Note Progress Note: Post op- day#1.S/P EGD under anesthesia under GA uneventful.P 92,BP 142/50 and Spo2 98% on O2 2L NC.Patient stable.No any anesthesia related problem.Patient DC from the anesthesia care.
[2017-11-20 19:29] LABS: URINE APPEARANCE CLEAR; URINE BILIRUBIN NEGATIVE (<2.0 mg/dL); URINE COLOR LTYELLOW; URINE GLUCOSE (UA) NEGATIVE (NEGATIVE); URINE KETONE NEGATIVE (NEGATIVE); URINE LEUK ESTERASE NEGATIVE (NEGATIVE); URINE NITRITE NEGATIVE (NEGATIVE); URINE PROTEIN NEGATIVE (NEGATIVE); URINE UROBILINOGEN NEGATIVE mg/dL (0.2-1.0)
[2017-11-21] MEDS: PANTOPRAZOLE SODIUM 80 MG in SODIUM CHLORIDE 100 ML IVPB SCH ×5 (01:14→21:00)
[2017-11-21 06:51] LABS: BASO % 0.8 % (0-2.0); EOS % 2.5 % (0-4.5); HEMOGLOBIN 10.2 GM/dL (10.7-15.3); LYMPH % 30.8 % (8-40); MCH 27.4 pg (25.7-33.7); MCHC 32.8 g/dl (32.0-36.0); MEAN CELL VOLUME 83.5 fl (80-96); MEAN PLT VOLUME 8.2 fl (7.5-11.1); MONO % 9.9 % (3.8-10.2); PLATELET COUNT 236 K/MM3 (134-434); RBC 3.71 M/mm3 (3.60-5.2); RDW 14.5 % (11.6-15.6); WHITE BLOOD COUNT 7.9 K/mm3 (4.0-10.0)
[2017-11-21 07:26] LABS: ALBUMIN 2.8 g/dl (3.4-5.0); ALK PHOS 49 U/L (45-117); ANION GAP 8 MMOL/L (8-16); BILIRUBIN,TOTAL 0.8 mg/dL (0.2-1); BLOOD UREA NITROGEN 13 mg/dL (7-18); CALCIUM 8.5 mg/dL (8.5-10.1); CHLORIDE 104 mmol/L (98-107); CO2 32 mmol/L (21-32); CREATININE 0.6 mg/dL (0.55-1.3); GLUCOSE,RANDOM 74 mg/dL (74-106); MAGNESIUM 1.8 mg/dL (1.8-2.4); POTASSIUM 4.1 mmol/L (3.5-5.1); SGOT/AST 21 U/L (15-37); SGPT/ALT 19 U/L (13-61); SODIUM 143 mmol/L (136-145); TOT PROT 5.2 g/dl (6.4-8.2)
[2017-11-21] MEDS ORDERED: PT OWN MED DRAWER 7, Y5N ONE ×4 (09:15→21:22)
[2017-11-21] MEDS: LEVOTHYROXINE NA 50 MCG TABLET (FP) PO SCH (09:33)
[2017-11-21] MEDS: TIOTROPIUM BROMIDE 2.5 MCG (SPIRIVA) RESPIMAT INHALER IH SCH (09:33)
--- NOTE | 2017-11-21 10:30 | PN ---
Progress Note (short form) - Note Progress Note: no complaints CBC, BMP 11/21/17 05:30 11/21/17 05:30 Vital Signs Period Temp Pulse Resp BP Sys/Maynard Pulse Ox Last 24 Hr 97.8 F-98.6 F 76-93 12-19 87-144/38-77 99-99 S1S2 RRR Lungs clear abd soft +BS non tender no edema aaox3 nonfocal IMP admitted for bleeding gastric ulcer has been on NSAIDs and ASA s/p EGD no further hematemesis advance diet if ok with PPI no NSAID, no ASA COPD add spiriva prn albuterol HTN/Tachycardia in past hypothyroidism cont synthroid physical therapy Problem List - Problems (1) Hypothyroidism Code(s): E03.9 - HYPOTHYROIDISM, UNSPECIFIED Qualifiers: Hypothyroidism type: acquired Qualified Code(s): E03.9 - Hypothyroidism, unspecified (2) COPD (chronic obstructive pulmonary disease) Code(s): J44.9 - CHRONIC OBSTRUCTIVE PULMONARY DISEASE, UNSPECIFIED Qualifiers: COPD type: unspecified COPD Qualified Code(s): J44.9 - Chronic obstructive pulmonary disease, unspecified (3) Upper gastrointestinal hemorrhage Code(s): K92.2 - GASTROINTESTINAL HEMORRHAGE, UNSPECIFIED
[2017-11-21] MEDS: ALBUTEROL SO4 0.083% IH SOL 2.5 MG/3 ML VIAL.NEB. NEB PRN (11:53)
--- NOTE | 2017-11-21 11:53 | PN ---
Physical Exam: SUBJECTIVE: - Reports feeling well this morning, no abdominal pain - No nausea, vomiting or other issues with clear liquid diet - Up in chair without difficulty today. No lightheadedness/dizziness OBJECTIVE: Vital Signs Period Temp Pulse Resp BP Sys/Maynard Pulse Ox Last 24 Hr 97.8 F-98.6 F 76-93 12-19 87-144/38-77 99-99 General: Comfortable, no acute distress HEENT: PERRL, EOMI, MMM, voice normal, normal neck ROM, no LAD Cards: RRR, no murmur appreciated Pulm: Comfortable on room air, clear to auscultation bilaterally Abd: Soft, nontender, nondistended Ext: Atraumatic. No LE edema. ROM intact. Strength 5/5 and equal bilaterally Vasc: Extremities WWP. Palpable radial and pedal pulses bilaterally Skin: Normal color, no rashes or lesions Neuro: A&Ox3, CN grossly intact, normal speech, motor/sensory grossly intact and symmetric Psych: Mood appropriate to situation Laboratory Results - last 24 hr 11/20/17 11/20/17 11/21/17 17:00 17:00 05:30 WBC 7.9 RBC 3.71 Hgb 10.2 L Hct 31.0 L MCV 83.5 MCH 27.4 MCHC 32.8 RDW 14.5 Plt Count 236 MPV 8.2 Absolute Neuts (auto) 4.4 Neutrophils % 56.0 D Lymphocytes % 30.8 D Monocytes % 9.9 Eosinophils % 2.5 D Basophils % 0.8 Nucleated RBC % 0 Sodium Potassium Chloride Carbon Dioxide Anion Gap BUN Creatinine Creat Clearance w eGFR Random Glucose Calcium Magnesium Total Bilirubin AST ALT Alkaline Phosphatase Total Protein Albumin Urine Color Cancelled Ltyellow Urine Appearance Cancelled Clear Urine pH Cancelled 5.0 Ur Specific [place] Cancelled 1.017 Urine Protein Cancelled Negative Urine Glucose (UA) Cancelled Negative Urine Ketones Cancelled Negative Urine Blood Cancelled Negative Urine Nitrite Cancelled Negative Urine Bilirubin Cancelled Negative Urine Urobilinogen Cancelled Negative Ur Leukocyte Esterase Cancelled Negative 11/21/17 05:30 WBC RBC Hgb Hct MCV MCH MCHC RDW Plt Count MPV Absolute Neuts (auto) Neutrophils % Lymphocytes % Monocytes % Eosinophils % Basophils % Nucleated RBC % Sodium 143 Potassium 4.1 Chloride 104 Carbon Dioxide 32 Anion Gap 8 BUN 13 Creatinine 0.6 Creat Clearance w eGFR > 60 Random Glucose 74 Calcium 8.5 Magnesium 1.8 Total Bilirubin 0.8 AST 21 ALT 19 Alkaline Phosphatase 49 Total Protein 5.2 L Albumin 2.8 L Urine Color Urine Appearance Urine pH Ur Specific [place] Urine Protein Urine Glucose (UA) Urine Ketones Urine Blood Urine Nitrite Urine Bilirubin Urine Urobilinogen Ur Leukocyte Esterase Active Medications Generic Name Dose Route Start Last Admin Trade Name Freq PRN Reason Stop Dose Admin Albuterol Sulfate 1 amp 11/20/17 08:38 11/20/17 10:47 Ventolin 0.083% Nebulizer Soln - NEB 1 amp Q4H PRN Administration SHORT OF BREATH/WHEEZING Erythromycin Lactobionate 250 mg 11/19/17 13:46 11/19/17 14:14 Erythromycin Injection - IVPB 11/19/17 13:47 Not Given ONCE ONE Pantoprazole Sodium 80 mg/ 100 mls @ 10 mls/hr 11/19/17 10:00 11/21/17 09:33 Sodium Chloride IVPB 10 mls/hr Q10H CARLYN Administration 8 MG/HR Levothyroxine Sodium 50 mcg 11/20/17 10:00 11/21/17 09:33 Synthroid - PO 50 mcg DAILY CARLYN Administration Tiotropium [place] 2 puff 11/20/17 11:00 11/21/17 09:33 Spiriva Respimat IH 2 puff DAILY CARLYN Administration ASSESSMENT/PLAN: Lela Cuellar is an 82yo woman iwth a PMH of HTN, COPD, peptic ulcer disease, diverticulosis, hypothyroidism admitted to the ICU for an upper GI bleed with gross BRBPR and melena yesterday. She is now s/p EGD with cauterization of a gastric ulcer noted to be oozing blood, and she has been stable since admission without any additional episodes of rectal bleeding or melena. Ms Cuellar is stable for transfer to the floor today. Neuro: - No issues, A&O. - Denies pain. CV: - h/o HTN. - Holding home metoprolol to avoid blunting cardiac response to blood loss. BP has been low to normal since admission Pulm: - h/o COPD. - Continue home tiotropium daily, albuterol Q4 PRN. - Comfortable on room air. Heme: - Hgb decreased slightly to 10.2 from 11.0. May be due to blood draws for labs. - Daily CBC GI: - s/p upper GI bleed. - Dr Greer following - EGD completed, large gastric body ulcer and multiple small ulcers/erosions in antrum noted, no active bleeding. - Continue pantoprazole drip for 72hrs total, until tomorrow morning. - Advance to full liquids for lunch, soft diet for dinner today Renal: - No issues ID: - No issues Endo: - No issues Psych: - No issues Musc: - OOB as tolerated PPx: - Low DVT risk, SCD's - Pantoprazole FEN: - Advance to full liquid diet for lunch, soft diet for dinner - No IVF, SLIV - Replete lytes PRN Dispo: - Transfer to floor Seen and discussed with Dr Berry. Dora Meza PGY1 Visit type - Emergency Visit Emergency Visit: No - New Patient This patient is new to me today: No - Critical Care Critical Care patient: Yes Total Critical Care Time (in minutes): 45 Critical Care Statement: The care of this patient involved high complexity decision making to prevent further life threatening deterioration of the patient 's condition and/or to evaluate & treat vital organ system(s) failure or risk of failure.
--- NOTE | 2017-11-21 12:06 | PN ---
Teaching Attending Note Name of Resident: Dora Meza ATTENDING PHYSICIAN STATEMENT I saw and evaluated the patient. I reviewed the resident's note and discussed the case with the resident. I agree with the resident's findings and plan as documented. SUBJECTIVE: Patient seen and examined in the ICU. Awake and alert. No occult bleeding noted overnight. No CP or SOB. No abdominal pain. Intake & Output 11/18/17 11/19/17 11/20/17 11/21/17 23:59 23:59 23:59 23:59 Intake Total 1900 540 Balance 1900 540 Weight 165 lb 5.547 oz Last Vital Signs Temp Pulse Resp BP Pulse Ox 97.8 F 84 19 98/46 L 99 11/21/17 10:00 11/21/17 10:00 11/21/17 10:00 11/21/17 10:00 11/21/17 08:00 Active Medications Albuterol Sulfate (Ventolin 0.083% Nebulizer Soln -) 1 amp NEB Q4H PRN PRN Reason: SHORT OF BREATH/WHEEZING Last Admin: 11/21/17 11:53 Dose: 1 amp Erythromycin Lactobionate (Erythromycin Injection -) 250 mg IVPB ONCE ONE Stop: 11/19/17 13:47 Last Admin: 11/19/17 14:14 Dose: Not Given Pantoprazole Sodium 80 mg/ (Sodium Chloride) 100 mls @ 10 mls/hr IVPB Q10H [facility] Last Admin: 11/21/17 09:33 Dose: 10 mls/hr Levothyroxine Sodium (Synthroid -) 50 mcg PO DAILY [facility] Last Admin: 11/21/17 09:33 Dose: 50 mcg Tiotropium [place] (Spiriva Respimat) 2 puff IH DAILY [facility] Last Admin: 11/21/17 09:33 Dose: 2 puff Constitutional: Yes: Awake and alert, NAD Eyes: Yes: Conjunctiva Clear HENT: Yes: Atraumatic, Normocephalic Neck: Yes: Supple, Trachea Midline Cardiovascular: Yes: Regular Rate and Rhythm, S1, S2 Respiratory: Yes: CTA Bilaterally. No: Accessory Muscle Use Gastrointestinal: Yes: Normal Bowel Sounds, Soft. No: Tenderness, Epigastrium, Tenderness, Rebound ...Rectal Exam: Yes: Other (melena) Edema: No Labs: Laboratory Results - last 24 hr 09/11/20/17 11/21/17 17:00 17:00 05:30 WBC 7.9 RBC 3.71 Hgb 10.2 L Hct 31.0 L MCV 83.5 MCH 27.4 MCHC 32.8 RDW 14.5 Plt Count 236 MPV 8.2 Absolute Neuts (auto) 4.4 Neutrophils % 56.0 D Lymphocytes % 30.8 D Monocytes % 9.9 Eosinophils % 2.5 D Basophils % 0.8 Nucleated RBC % 0 Sodium Potassium Chloride Carbon Dioxide Anion Gap BUN Creatinine Creat Clearance w eGFR Random Glucose Calcium Magnesium Total Bilirubin AST ALT Alkaline Phosphatase Total Protein Albumin Urine Color Cancelled Ltyellow Urine Appearance Cancelled Clear Urine pH Cancelled 5.0 Ur Specific [place] Cancelled 1.017 Urine Protein Cancelled Negative Urine Glucose (UA) Cancelled Negative Urine Ketones Cancelled Negative Urine Blood Cancelled Negative Urine Nitrite Cancelled Negative Urine Bilirubin Cancelled Negative Urine Urobilinogen Cancelled Negative Ur Leukocyte Esterase Cancelled Negative 11/21/17 05:30 WBC RBC Hgb Hct MCV MCH MCHC RDW Plt Count MPV Absolute Neuts (auto) Neutrophils % Lymphocytes % Monocytes % Eosinophils % Basophils % Nucleated RBC % Sodium 143 Potassium 4.1 Chloride 104 Carbon Dioxide 32 Anion Gap 8 BUN 13 Creatinine 0.6 Creat Clearance w eGFR > 60 Random Glucose 74 Calcium 8.5 Magnesium 1.8 Total Bilirubin 0.8 AST 21 ALT 19 Alkaline Phosphatase 49 Total Protein 5.2 L Albumin 2.8 L Urine Color Urine Appearance Urine pH Ur Specific [place] Urine Protein Urine Glucose (UA) Urine Ketones Urine Blood Urine Nitrite Urine Bilirubin Urine Urobilinogen Ur Leukocyte Esterase Problem List - Problems (1) Upper gastrointestinal hemorrhage Code(s): K92.2 - GASTROINTESTINAL HEMORRHAGE, UNSPECIFIED Assessment/Plan Upper GI Bleed due to large gastric ulcer: S/P heater probe GI bleed due to NSAID/ASA chronic use D/C PPI drip O2 as needed Normal transfusion thresholds SCDs Avoid NSAIDS PO per GI Floor Dr Berry
--- NOTE | 2017-11-21 13:14 | PN ---
GI Progress Note Subjective: No overt bleeding Denies any focal complaints - Objective Vital Signs: Vital Signs Temperature 11/21/17 13:00 Pulse Rate 114 H 11/21/17 13:00 Respiratory Rate 16 11/21/17 13:00 Blood Pressure 108/53 L 11/21/17 13:00 O2 Sat by Pulse Oximetry (%) 99 11/21/17 08:00 Constitutional: Calm Eyes: No: Sclera Icterus Cardiovascular: Yes: Tachycardia Respiratory: Yes: CTA Bilaterally Gastrointestinal Inspection: No: Distention ...Auscultate: Yes: Normoactive Bowel Sounds ...Palpate: No: Hepatomegaly, Splenomegaly, Tenderness Edema: No (No LE edema) Neurological: Yes: Alert Labs: CBC, BMP 11/21/17 05:30 11/21/17 05:30 INR, PTT INR 1.23 (0.82-1.09) H 11/19/17 11:20 Problem List - Problems (1) Upper gastrointestinal hemorrhage Assessment/Plan: Secondary to gastric ulcer H/H drifted down from this morning and she was tachycardic when I evaluated her. Her Resident explained that she recently received a nubulizer treatment, which could esxplain the tachycardia, however given current clinical situation, would repeat CBC and monitor for active bleeding. Keep on full liquids for now. If overt bleeding, NPO Continue PPI drip Code(s): K92.2 - GASTROINTESTINAL HEMORRHAGE, UNSPECIFIED
--- NOTE | 2017-11-21 13:40 | PATH ---
Surgical Pathology Report Patient Name: SHANI DALEY [facility]. Rec. #: [id number] /Age/Gender: 1935 (Age: 82) / F Account: [id number] Location: ICU STUDENT COUNSELOR Taken: 11/19/2017 Received: 11/20/2017 Reported: 11/21/2017 Physicians: Su Whitney M.D. Specimen(s) Received A: BX GASTRIC ULCER B: BX BODY AND ANGULARIS Clinical History Upper GI bleed Postoperative diagnosis: Hiatal hernia, gastric ulcer, duodenitis Final Diagnosis A. STOMACH, ULCER, BIOPSY: GASTRIC BODY MUCOSA WITH MILD CHRONIC GASTRITIS. IMMUNOHISTOCHEMICAL STAIN FOR H. PYLORI IS NEGATIVE. B. STOMACH, ANGULARIS/BODY, BIOPSY: GASTRIC BODY MUCOSA WITH MILD CHRONIC GASTRITIS. IMMUNOHISTOCHEMICAL STAIN FOR H. PYLORI IS NEGATIVE. Electronically Signed Lisa Oconnor M.D. Gross Description A. Received in formalin, labeled "biopsy gastric ulcer" are 3 tam, irregular portions of soft tissue measuring 0.1 cm. in greatest dimension. The specimens are submitted in toto in one cassette. B. Received in formalin, labeled "biopsy angularis and body" are 2 tam, irregular portions of soft tissue measuring 0.2 cm. in greatest dimension. The specimens are submitted in toto in one cassette. MLSZ/11/20/2017 sanml/11/20/2017
[2017-11-21 13:53] LABS: HEMATOCRIT 34.2 % (32.4-45.2); HEMOGLOBIN 11.2 GM/dL (10.7-15.3); MCH 27.5 pg (25.7-33.7); MCHC 32.7 g/dl (32.0-36.0); MEAN PLT VOLUME 8.6 fl (7.5-11.1); PLATELET COUNT 282 K/MM3 (134-434); RBC 4.08 M/mm3 (3.60-5.2); RDW 14.7 % (11.6-15.6); WHITE BLOOD COUNT 9.4 K/mm3 (4.0-10.0)
[2017-11-21] MEDS ORDERED: ALBUTEROL SO4 0.083% IH SOL 2.5 MG/3 ML VIAL.NEB. NEB PRN (17:07)
[2017-11-22] MEDS: LEVOTHYROXINE NA 50 MCG TABLET (FP) PO SCH (06:49)
[2017-11-22 07:29] LABS: BASO % 0.9 % (0-2.0); EOS % 1.9 % (0-4.5); HEMOGLOBIN 10.6 GM/dL (10.7-15.3); LYMPH % 24.3 % (8-40); MCH 27.5 pg (25.7-33.7); MCHC 33.2 g/dl (32.0-36.0); MEAN PLT VOLUME 8.5 fl (7.5-11.1); NEUT % 62.9 % (42.8-82.8); PLATELET COUNT 237 K/MM3 (134-434); RBC 3.86 M/mm3 (3.60-5.2); RDW 14.6 % (11.6-15.6); WHITE BLOOD COUNT 7.3 K/mm3 (4.0-10.0)
[2017-11-22 07:57] LABS: ALK PHOS 57 U/L (45-117); ANION GAP 7 MMOL/L (8-16); BLOOD UREA NITROGEN 11 mg/dL (7-18); CALCIUM 8.9 mg/dL (8.5-10.1); CHLORIDE 104 mmol/L (98-107); CO2 29 mmol/L (21-32); CREATININE 0.6 mg/dL (0.55-1.3); GLUCOSE,RANDOM 96 mg/dL (74-106); POTASSIUM 3.9 mmol/L (3.5-5.1); SGOT/AST 21 U/L (15-37); SGPT/ALT 17 U/L (13-61); SODIUM 140 mmol/L (136-145); TOT PROT 5.8 g/dl (6.4-8.2)
--- NOTE | 2017-11-22 08:54 | PN ---
Progress Note (short form) - Note Progress Note: no complaints no further hematemesis stool if formed, non-bloody yesterday tolerating soft diet, feels well CBC, BMP 11/22/17 06:00 11/22/17 06:00 Vital Signs Period Temp Pulse Resp BP Sys/Maynard Pulse Ox Last 24 Hr 97.3 F-99.4 F 81-99 13-19 98-122/46-82 97 S1S2 RRR Lungs clear abd soft +BS non tender no edema aaox3 nonfocal has slight nasal congestion, cold IMP admitted for bleeding gastric ulcer H.pylori negative has been on NSAIDs and ASA H+H stable s/p EGD PPI po no NSAID, no ASA COPD add spiriva prn albuterol HTN/Tachycardia in past hypothyroidism cont synthroid physical therapy dc planning today if ok with gi Problem List - Problems (1) Hypothyroidism Code(s): E03.9 - HYPOTHYROIDISM, UNSPECIFIED Qualifiers: Hypothyroidism type: acquired Qualified Code(s): E03.9 - Hypothyroidism, unspecified (2) COPD (chronic obstructive pulmonary disease) Code(s): J44.9 - CHRONIC OBSTRUCTIVE PULMONARY DISEASE, UNSPECIFIED Qualifiers: COPD type: unspecified COPD Qualified Code(s): J44.9 - Chronic obstructive pulmonary disease, unspecified (3) Upper gastrointestinal hemorrhage Code(s): K92.2 - GASTROINTESTINAL HEMORRHAGE, UNSPECIFIED
[2017-11-22] MEDS ORDERED: PT OWN MED DRAWER 7, Y5N ONE (09:57)
[2017-11-22] MEDS: PANTOPRAZOLE 40 MG TABLET (FP) PO SCH ×2 (10:24→21:26)
[2017-11-22] MEDS: TIOTROPIUM BROMIDE 2.5 MCG (SPIRIVA) RESPIMAT INHALER IH SCH (10:25)
--- NOTE | 2017-11-22 17:44 | PN ---
GI Progress Note Subjective: Had dark BM this morning. Ms. Cuellar states that she had a BM earlier this morning with dark blood and light blood Hgb 10.6 this morning - Objective Vital Signs: Vital Signs Temperature 98.3 F 11/22/17 14:02 Pulse Rate 92 H 11/22/17 14:02 Respiratory Rate 20 11/22/17 14:02 Blood Pressure 104/62 11/22/17 14:02 O2 Sat by Pulse Oximetry (%) 97 11/22/17 09:00 Constitutional: Calm Eyes: No: Sclera Icterus Cardiovascular: Yes: Tachycardia Respiratory: Yes: CTA Bilaterally Gastrointestinal Inspection: No: Distention ...Auscultate: Yes: Normoactive Bowel Sounds ...Palpate: No: Hepatomegaly, Splenomegaly, Tenderness ...Rectal Exam: Yes: Other (No gross blood. Dark brown stool) Edema: No (No LE edema) Labs: CBC, BMP 11/22/17 06:00 11/22/17 06:00 INR, PTT INR 1.23 (0.82-1.09) H 11/19/17 11:20 Problem List - Problems (1) Upper gastrointestinal hemorrhage Assessment/Plan: H/H has been stable however with ? of blood in stool: - Keep NPO except meds - If dwindling H/H, would transfer down to ICU and needs repeat EGD tomorrow - Repeat CBC ordered for tonight - Continue PPI Code(s): K92.2 - GASTROINTESTINAL HEMORRHAGE, UNSPECIFIED
[2017-11-22 18:36] LABS: HEMATOCRIT 34.7 % (32.4-45.2); HEMOGLOBIN 11.5 GM/dL (10.7-15.3); MCH 27.4 pg (25.7-33.7); MEAN CELL VOLUME 83.2 fl (80-96); MEAN PLT VOLUME 8.8 fl (7.5-11.1); PLATELET COUNT 282 K/MM3 (134-434); RBC 4.17 M/mm3 (3.60-5.2); RDW 14.2 % (11.6-15.6); WHITE BLOOD COUNT 8.7 K/mm3 (4.0-10.0)
[2017-11-23] MEDS: LEVOTHYROXINE NA 50 MCG TABLET (FP) PO SCH (06:13)
[2017-11-23 07:18] LABS: BASO % 0.5 % (0-2.0); EOS % 1.7 % (0-4.5); HEMATOCRIT 30.7 % (32.4-45.2); HEMOGLOBIN 10.3 GM/dL (10.7-15.3); LYMPH % 19.9 % (8-40); MCH 27.6 pg (25.7-33.7); MCHC 33.7 g/dl (32.0-36.0); MEAN CELL VOLUME 81.9 fl (80-96); MEAN PLT VOLUME 8.8 fl (7.5-11.1); MONO % 9.3 % (3.8-10.2); NEUT % 68.6 % (42.8-82.8); PLATELET COUNT 252 K/MM3 (134-434); RBC 3.74 M/mm3 (3.60-5.2); RDW 14.4 % (11.6-15.6); WHITE BLOOD COUNT 8.3 K/mm3 (4.0-10.0)
[2017-11-23] MEDS: PANTOPRAZOLE 40 MG TABLET (FP) PO SCH ×2 (09:24→21:06)
[2017-11-23] MEDS: TIOTROPIUM BROMIDE 2.5 MCG (SPIRIVA) RESPIMAT INHALER IH SCH (09:24)
--- NOTE | 2017-11-23 09:25 | PN ---
Progress Note (short form) - Note Progress Note: had episode of slightly bloody stool yesterday NPO now CBC, BMP 11/23/17 06:00 11/22/17 06:00 Vital Signs Period Temp Pulse Resp BP Sys/Maynard Pulse Ox Last 24 Hr 98.3 F-99.1 F 72-94 18-20 104-131/62-75 97 S1S2 RRR Lungs clear abd soft +BS non tender no edema aaox3 nonfocal IMP admitted for bleeding gastric ulcer H.pylori negative has been on NSAIDs and ASA H+H stable fluctuating, but overall same range blood in stool yesterday-rectal exam was unremarkable PPI po no NSAID, no ASA COPD add spiriva prn albuterol HTN/Tachycardia in past-did not resume toprol yet hypothyroidism cont synthroid physical therapy dc planning once ok with gi Problem List - Problems (1) Hypothyroidism Code(s): E03.9 - HYPOTHYROIDISM, UNSPECIFIED Qualifiers: Hypothyroidism type: acquired Qualified Code(s): E03.9 - Hypothyroidism, unspecified (2) COPD (chronic obstructive pulmonary disease) Code(s): J44.9 - CHRONIC OBSTRUCTIVE PULMONARY DISEASE, UNSPECIFIED Qualifiers: COPD type: unspecified COPD Qualified Code(s): J44.9 - Chronic obstructive pulmonary disease, unspecified (3) Upper gastrointestinal hemorrhage Code(s): K92.2 - GASTROINTESTINAL HEMORRHAGE, UNSPECIFIED
[2017-11-23] MEDS ORDERED: cefTRIAXone SODIUM 1 GM VIAL ONE (10:51)
[2017-11-23] MEDS ORDERED: DEXTROSE 5%-WATER - 50 ML IVPB ONE (10:51)
[2017-11-23] MEDS: CEFTRIAXONE 1 GM in DEXTROSE 5%-WATER - 50 ML IVPB SCH (11:43)
--- NOTE | 2017-11-23 14:17 | PN ---
Progress Note (short form) - Note Progress Note: For Dr. Lavonne Greer. The pt was seen and examined this afternoon. No events. Last BM yesterday, formed. Appears comfortable. Reports no hematochezia, hematemesis, dyspepsia, epigastric, or abdominal pain. No abdominal cramping, nausea, fever. HGB 10.6 - 10.3. BUN 11. Abdomen soft and non-tender. Bx H. pylori negative, chronic gastritis. CBCD WBC 8.3 K/mm3 (4.0-10.0) 11/23/17 06:00 RBC 3.74 M/mm3 (3.60-5.2) 11/23/17 06:00 Hgb 10.3 GM/dL (10.7-15.3) L 11/23/17 06:00 Hct 30.7 % (32.4-45.2) L 11/23/17 06:00 MCV 81.9 fl (80-96) 11/23/17 06:00 MCHC 33.7 g/dl (32.0-36.0) 11/23/17 06:00 RDW 14.4 % (11.6-15.6) 11/23/17 06:00 Plt Count 252 K/MM3 (134-434) 11/23/17 06:00 MPV 8.8 fl (7.5-11.1) 11/23/17 06:00 CMP Sodium 140 mmol/L (136-145) 11/22/17 06:00 Potassium 3.9 mmol/L (3.5-5.1) 11/22/17 06:00 Chloride 104 mmol/L (98-107) 11/22/17 06:00 Carbon Dioxide 29 mmol/L (21-32) 11/22/17 06:00 Anion Gap 7 MMOL/L (8-16) L 11/22/17 06:00 BUN 11 mg/dL (7-18) 11/22/17 06:00 Creatinine 0.6 mg/dL (0.55-1.3) 11/22/17 06:00 Creat Clearance w eGFR > 60 (>60) 11/22/17 06:00 Calcium 8.9 mg/dL (8.5-10.1) 11/22/17 06:00 Total Bilirubin 1.0 mg/dL (0.2-1) 11/22/17 06:00 AST 21 U/L (15-37) 11/22/17 06:00 ALT 17 U/L (13-61) 11/22/17 06:00 Alkaline Phosphatase 57 U/L (45-117) 11/22/17 06:00 Total Protein 5.8 g/dl (6.4-8.2) L 11/22/17 06:00 Albumin 3.0 g/dl (3.4-5.0) L 11/22/17 06:00 Vital Signs - 24 hr 11/22/17 11/22/17 11/22/17 18:45 21:00 22:00 Temperature 99.1 F 98.8 F Pulse Rate 94 H 72 Respiratory 18 18 18 Rate Blood Pressure 130/73 125/68 O2 Sat by Pulse 97 Oximetry (%) 11/23/17 11/23/17 11/23/17 01:23 05:54 09:00 Temperature 98.5 F 98.4 F Pulse Rate 85 88 Respiratory 18 18 Rate Blood Pressure 106/63 131/75 O2 Sat by Pulse 95 Oximetry (%) 11/23/17 11/23/17 10:00 14:06 Temperature 99.0 F 99.4 F Pulse Rate 84 95 H Respiratory 16 20 Rate Blood Pressure 118/64 124/72 O2 Sat by Pulse Oximetry (%) Continue current care, CBC in AM. PPI as ordered, carafate x 15 days. Soft diet today. Avoid NSAIDs, if possible. Surveillance EGD in 3 months, or sooner if signs, or symptoms of rebleeding noted, or suspected. Discussed with the patient.
[2017-11-23] MEDS: SUCRALFATE 1 GM TABLET (FP) PO SCH ×2 (17:47→21:06)
[2017-11-23] MEDS ORDERED: PT OWN MED DRAWER 7, Y5N ONE (20:26)
[2017-11-24] MEDS: LEVOTHYROXINE NA 50 MCG TABLET (FP) PO SCH (06:17)
[2017-11-24 07:20] LABS: BASO % 0.8 % (0-2.0); HEMATOCRIT 30.5 % (32.4-45.2); HEMOGLOBIN 10.2 GM/dL (10.7-15.3); LYMPH % 16.9 % (8-40); MCH 27.3 pg (25.7-33.7); MCHC 33.5 g/dl (32.0-36.0); MEAN CELL VOLUME 81.6 fl (80-96); MEAN PLT VOLUME 8.9 fl (7.5-11.1); MONO % 12.1 % (3.8-10.2); NEUT % 69.2 % (42.8-82.8); PLATELET COUNT 279 K/MM3 (134-434); RBC 3.73 M/mm3 (3.60-5.2); RDW 14.4 % (11.6-15.6); WHITE BLOOD COUNT 9.5 K/mm3 (4.0-10.0)
--- NOTE | 2017-11-24 08:53 | DS ---
Physical Examination Vital Signs: Vital Signs Temperature 98.7 F 11/24/17 05:36 Pulse Rate 97 H 11/24/17 05:36 Respiratory Rate 18 11/24/17 05:36 Blood Pressure 115/65 11/24/17 05:36 O2 Sat by Pulse Oximetry (%) 95 11/23/17 21:00 Constitutional: Yes: No Distress, Calm HENT: Yes: Normocephalic Neck: Yes: Trachea Midline Cardiovascular: Yes: Regular Rate and Rhythm Respiratory: Yes: CTA Bilaterally Gastrointestinal: Yes: Normal Bowel Sounds, Soft Extremities: Yes: WNL Edema: No Peripheral Pulses WNL: Yes Integumentary: Yes: Other (left forearm phlebitis improved since yesterday, less swollen, less red, less tender) Psychiatric: Yes: WNL Labs: CBC, BMP 11/24/17 06:00 11/22/17 06:00 Discharge Summary Reason For Visit: UPPER GI BLEED Current Active Problems COPD (chronic obstructive pulmonary disease) (Acute) Hypothyroidism (Acute) Upper gastrointestinal hemorrhage (Acute) Hospital Course: admitted for hematemesis, melena and dizzyness. egd showed bleeding gastric ulcer, was cauterized, pt was on iv protonix drip and npo for several days. one episode of blood in BM since, but none for 2 days. did not need transfusion. developed phlebitis over iv site which improved with iv ceftriaxone and ice packs. her blood count is stable at present, tolerating solid food. medically stable to la home with outpt follow up. she need repeat endoscopy in 2 months. at that time she is also due for colonoscopy. Condition: Guarded - Instructions Diet, Activity, Other Instructions: soft diet STOP all Aspirin, aleeve,motrin, naprosyn, ibuprofen and advil products f/up with in office in 2 months for repeat endoscopy Referrals: Luzma Santiago MD [Primary Care Provider] - - Home Medications Comprehensive Discharge Medication List: Ambulatory Orders Levothyroxine [Synthroid -] 50 mcg PO DAILY 09/03/16 Pantoprazole Sodium [Protonix -] 40 mg PO BID #60 tablet.ec 11/22/17 Tiotropium [place] [Spiriva Respimat] 2 puff IH DAILY #1 inhaler 11/22/17 Cephalexin [Keflex] 500 mg PO TID #30 capsule 11/24/17 Sucralfate [Carafate -] 1 gm PO QID #120 tablet 11/24/17
[2017-11-24] MEDS ORDERED: DEXTROSE 5%-WATER - 50 ML IVPB ONE (09:54)
[2017-11-24] MEDS ORDERED: cefTRIAXone SODIUM 1 GM VIAL ONE (09:54)
[2017-11-24] MEDS: CEFTRIAXONE 1 GM in DEXTROSE 5%-WATER - 50 ML IVPB SCH (10:06)
[2017-11-24] MEDS: TIOTROPIUM BROMIDE 2.5 MCG (SPIRIVA) RESPIMAT INHALER IH SCH (10:06)
[2017-11-24] MEDS: PANTOPRAZOLE 40 MG TABLET (FP) PO SCH (10:06)
[2017-11-24] MEDS: SUCRALFATE 1 GM TABLET (FP) PO SCH (10:06)
[2017-11-24 10:08] VITALS: PULSE 100
[2017-11-24 13:52] VITALS: BP 123/62; TEMP 98.7
== END 2017-11-24 14:51 | disposition home or self-care (01) | DRG 917 ==
LOC: SUPCPDRO 09:25 → FER 09:25 → JICU 13:08 → J7W 11-21 17:06
PROVIDERS: ADMIT Internal Medicine; ATTEND Internal Medicine
PROC: 0W3P8ZZ Control Bleeding in Gastrointestinal Tract, Via Natural or Artificial Opening Endoscopic (ICD-10-PCS; principal; 2017-11-19 16:00)
DX: T47.1X4A Poisoning by other antacids and anti-gastric-secretion drugs, undetermined, initial encounter (principal); K26.4 Chronic or unspecified duodenal ulcer with hemorrhage; T80.1XXA Vascular complications following infusion, transfusion and therapeutic injection, initial encounter; K31.89 Other diseases of stomach and duodenum; I80.8 Phlebitis and thrombophlebitis of other sites; Y84.8 Other medical procedures as the cause of abnormal reaction of the patient, or of later complication, without mention of misadventure at the time of the procedure; J44.9 Chronic obstructive pulmonary disease, unspecified; I10 Essential (primary) hypertension; Z87.11 Personal history of peptic ulcer disease; K57.30 Diverticulosis of large intestine without perforation or abscess without bleeding; E89.0 Postprocedural hypothyroidism; Z87.891 Personal history of nicotine dependence; K44.9 Diaphragmatic hernia without obstruction or gangrene
CPT/HCPCS: 36415; 71045-TC-FY; 80048; 80053; 81003; 82272; 82550; 83690; 83735; 84100; 84484; 85025; 85027; 85610; 85730; 86850; 86900; 86901; 86922; 87040; 88305-TC; 93005; 94640; 97116-GP; 97161-GP; 99284-25

== ENCOUNTER 2018-02-22 17:39 | Emergency (ER) | payer BC ==
[2018-02-22 17:51] VITALS: BP 159/99; PULSE 94; TEMP 98.3; BMI 27.4
[2018-02-22] MEDS ORDERED: ALBUTEROL SO4 2.5/IPRATROPIUM 0.5 INH SOL 3 ML VIAL.NEB. NEB ONE ×2 (18:01→18:06)
--- NOTE | 2018-02-22 18:06 | PDOC ---
History of Present Illness - General Chief Complaint: Respiratory Stated Complaint: COUGH, SORE THROAT Time Seen by Provider: 02/22/18 17:54 History Source: Patient Exam Limitations: No Limitations - History of Present Illness Initial Comments: 02/22/18 18:02 82-year-old female history of COPD longer a smoker also history of fibromyalgia previous GI bleed frequent pneumonia and other urinary infections here today complaining of a cough for 2-3 days. Patient states she has had a bronchial type cough productive of clear sputum denies any fevers or chills no chest pain no nausea vomiting does not feel lightheaded no other complaints she does have a sick contact of her daughter with a similar cold patient also complains of nasal congestion no weakness no rash no leg edema no other current complaints patient does not currently see a lung doctor Past History - Past Medical History Allergies/Adverse Reactions: Allergies Allergy/AdvReac Type Severity Reaction Status Date / Time No Known Allergies Allergy Verified 02/22/18 17:40 Home Medications: Ambulatory Orders Levothyroxine [Synthroid -] 50 mcg PO DAILY 09/03/16 Pantoprazole Sodium [Protonix -] 40 mg PO BID #60 tablet.ec 11/22/17 Tiotropium [place] [Spiriva Respimat] 2 puff IH DAILY #1 inhaler 11/22/17 Sucralfate [Carafate -] 1 gm PO QID #120 tablet 11/24/17 Albuterol Sulfate Inhaler - [Ventolin HFA Inhaler -] 2 puff IH Q4H PRN #1 inhaler MDD 6 02/22/18 Prednisone [Deltasone] 20 mg PO BID 5 Days #10 tablet 02/22/18 Cardiac Disorders: Yes COPD: Yes GI Disorders: (peptic ulcers) Disorders: Yes (KIDNEY INFECTIONS) HTN: Yes Thyroid Disease: Yes - Surgical History Orthopedic Surgery: (metal in right ankle) - Suicide/Smoking/Psychosocial Hx Smoking History: Former smoker Have you smoked in the past 12 months: No Information on smoking cessation initiated: No Hx Alcohol Use: No Drug/Substance Use Hx: No Substance Use Type: None Review of Systems - Review of Systems Constitutional: No: Diaphoresis, Fever HEENTM: Yes: Nose Congestion. No: Blurred Vision Respiratory: Yes: Productive cough. No: Orthopnea, Shortness of Breath, Wheezing Cardiac (ROS): Yes: Palpitations. No: Edema : No: Dysuria, Discharge (canceled on antibiotics) Musculoskeletal: No: Back Pain Integumentary: No: Bruising, Change in Color Neurological: No: Headache, Numbness All Other Systems: Reviewed and Negative *Physical Exam - Vital Signs Last Vital Signs Temp Pulse Resp BP Pulse Ox 98.3 F 94 H 22 H 159/99 92 L 02/22/18 17:39 02/22/18 17:39 02/22/18 17:39 02/22/18 17:39 02/22/18 17:39 - Physical Exam Comments: 02/22/18 18:03 Awake alert no acute distress lungs are with bronchial breath sounds at the bases bilaterally no audible wheezes normal effort no retractions heart is regular without any murmurs rubs or gallops abdomen is soft and nontender extremities are warm well perfused no appreciated edema neurologically patient is awake alert and oriented gait is normal speech is clear Moderate Sedation - Procedure Monitoring Vital Signs: Procedure Monitoring Vital Signs Temperature 98.3 F 02/22/18 17:39 Pulse Rate 94 H 02/22/18 17:39 Respiratory Rate 22 H 02/22/18 17:39 Blood Pressure 159/99 02/22/18 17:39 O2 Sat by Pulse Oximetry (%) 92 L 02/22/18 17:39 Heart Score/ECG Review #1 ECG reviewed & interpreted by me at: 18:49 General ECG Interpretation: Sinus Rhythm, Normal Intervals, No acute ischemic changes Compared to previous ECG there are: Other (sinus tachycardia 103 ( post neb) no st elevation or depression) ED Treatment Course - RADIOLOGY Radiology Studies Ordered: Category Date Time Status CHEST PA & LAT [RAD] Stat Radiology 02/22/18 17:55 Ordered Medical Decision Making - Medical Decision Making 02/22/18 18:05 82-year-old female history of COPD fibromyalgia and hypertension here today with cough congestion viral URI symptoms also complaining of shortness of breath. Differential includes pneumonia, COPD exacerbation, viral bronchitis patient is afebrile therefore influenza is unlikely plan DuoNeb chest x-ray consider steroids EKG as the patient is also complaining of palpitations and reassess 02/22/18 18:43 cxr negative. pt improved wtih nebs. given steroids. dc home with rx for inhaler and prednisone 02/22/18 18:50 pt ekg with sinus tachycardia after neb. no ischemic changes. dc home. *DC/Admit/Observation/Transfer Diagnosis at time of Disposition: Bronchitis - Discharge Dispostion Disposition: HOME Condition at time of disposition: Improved - Prescriptions Prescriptions: Albuterol Sulfate Inhaler - [Ventolin HFA Inhaler -] 2 puff IH Q4H PRN #1 inhaler MDD 6 PRN Reason: Wheezing Prednisone [Deltasone] 20 mg PO BID 5 Days #10 tablet - Referrals Referrals: Neri Owen MD [Staff Physician] - - Patient Instructions Printed Discharge Instructions: Common Cold, DI for Chronic Bronchitis Additional Instructions: you can use inhaler albuterol 2 puffs every 4 hrs as needed for wheezing or cough. take prednisone 20 mg twice daily x 5 days. return for shortness of breath, chest pain, fever, vomiting or any concerns. you should follow up with your primary doctor call to schedule within one week. 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 see referall information for Dr Owen. call to arrange followup - Post Discharge Activity
[2018-02-22] MEDS ORDERED: predniSONE 20 MG TABLET (UD) PO ONE (18:43)
[2018-02-22] MEDS ORDERED: predniSONE 20 MG TABLET (UD) ONE (18:49)
--- NOTE | 2018-02-23 09:35 | EKG ---
Test Reason : Blood Pressure : / mmHG Vent. Rate : 103 BPM Atrial Rate : 103 BPM P-R Int : 180 ms QRS Dur : 078 ms QT Int : 344 ms P-R-T Axes : 080 040 035 degrees QTc Int : 450 ms SINUS TACHYCARDIA OTHERWISE NORMAL ECG WHEN COMPARED WITH ECG OF 19-NOV-2017 09:37, NO SIGNIFICANT CHANGE WAS FOUND Confirmed by MANE LICONA MD ([id number]) on 02/23/2018 9:35:24 AM Referred By: Confirmed By:MANE LICONA MD
== END 2018-02-22 18:54 | disposition home or self-care (01) ==
LOC: FER 17:39
PROC: 3E0F7GC Introduction of Other Therapeutic Substance into Respiratory Tract, Via Natural or Artificial Opening (ICD-10-PCS; principal; 2018-02-22)
DX: J20.9 Acute bronchitis, unspecified (principal); I10 Essential (primary) hypertension; J44.9 Chronic obstructive pulmonary disease, unspecified; Z87.891 Personal history of nicotine dependence
CPT/HCPCS: 71046-TC-FY; 93005; 99282-25

== ENCOUNTER 2018-03-05 17:32 | Emergency (ER) | payer BC ==
--- NOTE | 2018-03-05 17:33 | PDOC ---
History of Present Illness - General Chief Complaint: Cold Symptoms Stated Complaint: COUGH Time Seen by Provider: 03/05/18 17:33 History Source: Patient Exam Limitations: No Limitations - History of Present Illness Initial Comments: 03/05/18 17:36 82 year old female with PMH COPD, fibromyalgia, GIB, frequent pneumonia, UTIs presented to ED for productive green cough x2 weeks. Pt was seen and evaluated at [facility] ED for nonproductive cough 02/22/18, was DCed with prednisone and albuterol inhaler prescription. Pt reported she took all medications but symptoms have persisted and her sputum is now green. Pt admitted to nasal congestion, green nasal mucus, which is getting worse. She stated she feels her cough is getting better, but still present, and now with the change in sputum color. Past History - Past Medical History Allergies/Adverse Reactions: Allergies Allergy/AdvReac Type Severity Reaction Status Date / Time No Known Allergies Allergy Verified 03/05/18 17:33 Home Medications: Ambulatory Orders Levothyroxine [Synthroid -] 50 mcg PO DAILY 09/03/16 Tiotropium [place] [Spiriva Respimat] 2 puff IH DAILY #1 inhaler 11/22/17 Sucralfate [Carafate -] 1 gm PO QID #120 tablet 11/24/17 Albuterol Sulfate Inhaler - [Ventolin HFA Inhaler -] 2 puff IH Q4H PRN #1 inhaler MDD 6 02/22/18 Azithromycin 250 mg PO DAILY #4 tablet 03/05/18 Duloxetine HCl [Cymbalta] 20 mg PO DAILY 03/05/18 Cardiac Disorders: Yes COPD: Yes GI Disorders: (peptic ulcers) Disorders: Yes (KIDNEY INFECTIONS) HTN: Yes Thyroid Disease: Yes - Surgical History Orthopedic Surgery: (metal in right ankle) - Suicide/Smoking/Psychosocial Hx Smoking History: Former smoker Have you smoked in the past 12 months: No Hx Alcohol Use: No Drug/Substance Use Hx: No Substance Use Type: None Review of Systems - Review of Systems Able to Perform ROS?: Yes Comments:: 03/05/18 17:38 General: denied fever, chills, night sweats, generalized weakness. HEENT: admitted to nasal congestion. denied sore throat, rhinorrhea, ear pain. Heart: denied chest pain, palpitations, syncope, lower extremity swelling, diaphoresis. Respiratory: admitted to cough, sputum production. denied shortness of breath, hemoptysis. Abdomen: denied abdominal pain, nausea, vomiting, diarrhea, constipation, blood in stool. : denied dysuria, increased urinary frequency, hematuria, urinary incontinence , flank pain. Back: denied back pain. Musculoskeletal: denied joint pain, muscle pain, joint swelling. Neurological: denied headache, dizziness, numbness, tingling, weakness. Skin: denied rash, laceration, abrasion. *Physical Exam - Physical Exam Comments: 03/05/18 17:41 Constitutional: Well-nourished, Well-developed, appearing stated age. HEENT: head is normocephalic, atraumatic. EOMI. PERRLA. Neck: supple. Full ROM. Heart: tachycardic. regular rhythm. no murmurs, rubs or gallops. Lungs: clear to auscultation bilaterally. no crackles, rhonchi or wheezing. no stridor. Abdomen: soft, nontender. normal bowel sounds. no rebound, guarding, masses. Extremities: Peripheral pulses intact. No lower extremity edema. Neurological: CN 2-12 grossly intact. Moves all four extremities. Psych: awake, alert, oriented x3. Follows commands. Answers questions appropriately. Medical Decision Making - Medical Decision Making 03/05/18 17:41 82 year old female with above PMH presented to ED for persistent productive cough. Initial Vital Signs Temp Pulse Resp BP Pulse Ox 99.2 F 114 H 20 104/78 95 03/05/18 17:32 03/05/18 17:32 03/05/18 17:32 03/05/18 17:32 03/05/18 17:32 Afebrile. Tachycardia. No tachypnea. Mild hypotension. No hypoxia on room air. Labs ordered: none Imaging ordered: CXR Medications ordered: agapito 03/05/18 18:23 CXR: no infiltrate. no cardiomegaly. sharp costophrenic angles. Azithromycin ordered. Pt to be discharged with azithromycin prescription. *DC/Admit/Observation/Transfer Diagnosis at time of Disposition: Cough, COPD exacerbation - Discharge Dispostion Disposition: HOME Condition at time of disposition: Stable Decision to Admit order: No - Prescriptions Prescriptions: Azithromycin 250 mg PO DAILY #4 tablet - Referrals - Patient Instructions Printed Discharge Instructions: DI for Chronic Obstructive Pulmonary Disease Additional Instructions: You were seen today for cough. You do not have pneumonia. I have sent a prescription for an antibiotic to your pharmacy. Take as advised on label. Do not miss any doses. Take a probiotic over the counter to prevent antibiotic associated diarrhea. Follow up with your primary care doctor in 1-2 days. Return to the Emergency Department for coughing up blood, fever, chest pain, shortness of breath, or any other new, worsening or concerning symptoms. - Post Discharge Activity
[2018-03-05] MEDS ORDERED: ALBUTEROL SO4 2.5/IPRATROPIUM 0.5 INH SOL 3 ML VIAL.NEB. NEB ONE ×2 (17:42→18:24)
[2018-03-05 17:50] VITALS: BP 104/78; PULSE 114; TEMP 99.2; BMI 28.5
--- NOTE | 2018-03-05 18:09 | PDOC ---
Attending Attestation - Resident Resident Name: Nisha Gustafson - ED Attending Attestation I have performed the following: I have examined & evaluated the patient, The case was reviewed & discussed with the resident, I agree w/resident's findings & plan, Exceptions are as noted - HPI HPI: 03/05/18 18:07 82-year-old female history of COPD, fibromyalgia, GI bleed, frequent pneumonias and urinary tract infections presents with 2 weeks of cough. Initially, the patient was seen here February 22 was discharges COPD exacerbation with albuterol and prednisone. At that time, the patient's sputum production was clear. However, is now progressed to greenish productive. The patient reports that the coughing is improved significantly. Denies fevers or chills. Denies shortness of breath. But the patient states that she thinks she may need an antibiotic. - Physicial Exam PE: 03/05/18 18:07 GENERAL: Awake, alert, and fully oriented, in no acute distress HEAD: No signs of trauma EYES: EOMI, sclera anicteric, conjunctiva clear ENT: Auricles normal inspection, hearing grossly normal, nares patent, Moist mucosa. No facial tenderness NECK: Normal ROM, supple LUNGS: Breath sounds equal, clear to auscultation bilaterally. No wheezes, and no crackles HEART: Regular rate and rhythm, normal S1 and S2, no murmurs, rubs or gallops ABDOMEN: Soft, nontender, No guarding, no rebound. No masses EXTREMITIES: Normal range of motion, no edema. No clubbing or cyanosis. No cords, erythema, or tenderness NEUROLOGICAL: Cranial nerves II through XII grossly intact. Normal speech, normal gait SKIN: Warm, Dry, normal turgor, no rashes or lesions noted. - Medical Decision Making 03/05/18 18:07 Vital Signs Temp Pulse Resp BP Pulse Ox 99.2 F 114 H 20 104/78 95 03/05/18 17:32 03/05/18 17:32 03/05/18 17:32 03/05/18 17:32 03/05/18 17:32 82-year-old female patient presents with yet greenish productive cough area I suspect patient likely has bronchitis. However, she is not wheezing at this time. The patient is breathing comfortably and speaking in full sentences. We' ll initiate azithromycin. Obtain chest x-ray to rule out pneumonia. If chest x- ray is unremarkable, patient be discharged home follow-up primary care physician. 03/05/18 18:29 Chest xray reviewed by me, pending official radiology read. Some mild blunting of the costophrenic angles, but no obvious infiltrates. Will d/c patient with azithromycin. <Be Ruvalcaba - Last Filed: 03/05/18 18:29> - Medical Decision Making EXAM#: TYPE/EXAM: RESULT: [id number] RAD/CHEST PA LAT HISTORY PROVIDED: Rule out pneumonia PA and lateral projections of the chest are submitted. IMPRESSION: COPD, no acute disease. Reported By: Jeffrey Jolley MD 03/05/18 20:02 Documentation prepared by TULIO Crawley, acting as medical reimbursement manager for Be Ruvalcaba MD. 03/05/18 22:56 <Natalee Hi - Last Filed: 03/05/18 22:57>
[2018-03-05] MEDS ORDERED: AZITHROMYCIN 500 MG TABLET PO ONE (18:21)
[2018-03-05] MEDS ORDERED: AZITHROMYCIN 250 MG TABLET ONE (18:59)
== END 2018-03-05 19:00 | disposition home or self-care (01) ==
LOC: FER 17:32
DX: J44.1 Chronic obstructive pulmonary disease with (acute) exacerbation (principal); I10 Essential (primary) hypertension; M79.7 Fibromyalgia; E07.9 Disorder of thyroid, unspecified; R00.0 Tachycardia, unspecified; I95.9 Hypotension, unspecified; Z87.440 Personal history of urinary (tract) infections; Z87.01 Personal history of pneumonia (recurrent); Z87.891 Personal history of nicotine dependence
CPT/HCPCS: 71046-TC-FY; 99282-25

== ENCOUNTER 2019-02-18 14:24 | Inpatient (IN) | payer BC ==
[2019-02-18] MEDS ORDERED: ALBUTEROL SO4 2.5/IPRATROPIUM 0.5 INH SOL 3 ML VIAL.NEB. NEB ONE ×3 (15:04→16:19)
[2019-02-18] MEDS: ALBUTEROL SO4 2.5/IPRATROPIUM 0.5 INH SOL 3 ML VIAL.NEB. NEB SCH ×4 (15:29→20:17)
--- NOTE | 2019-02-18 15:29 | PDOC ---
Documentation entered by Talia Deleon SCRIBE, acting as scribe for Lavell Singh MD. Lavell Singh MD: This documentation has been prepared by the Pancho ortiz Xhesika, SCRIBE, under my direction and personally reviewed by me in its entirety. I confirm that the documentation accurately reflects all work, treatment, procedures, and medical decision making performed by me. History of Present Illness - General Chief Complaint: Cold Symptoms Stated Complaint: cough Time Seen by Provider: 02/18/19 14:26 History Source: Patient Exam Limitations: No Limitations - History of Present Illness Initial Comments: 02/18/19 15:07 The patient is an 83 year old female with a PMH of COPD (non compliant with medications), fibromyalgia, GI bleed, frequent pneumonias and urinary tract infections presents o the ED with several days of productive cough with greenish phlegm. Pt reports associated nausea and chest pain, which she notes is due to her constantly coughing. The patient denies shortness of breath, headache and dizziness. Denies fever, chills, vomiting, diarrhea and constipation. Denies dysuria, frequency, urgency and hematuria. Allergies: NKDA PCP: Luzma Mishra Past History - Past Medical History Allergies/Adverse Reactions: Allergies Allergy/AdvReac Type Severity Reaction Status Date / Time No Known Allergies Allergy Verified 02/18/19 15:42 Home Medications: Ambulatory Orders Levothyroxine [Synthroid -] 50 mcg PO DAILY 09/03/16 Tiotropium [place] [Spiriva Respimat] 2 puff IH DAILY #1 inhaler 11/22/17 Duloxetine HCl [Cymbalta] 20 mg PO DAILY 03/05/18 Cardiac Disorders: Yes COPD: Yes GI Disorders: (peptic ulcers) Disorders: Yes (KIDNEY INFECTIONS) HTN: Yes Thyroid Disease: Yes - Surgical History Orthopedic Surgery: (metal in right ankle) - Psycho Social/Smoking Cessation Hx Smoking History: Former smoker Have you smoked in the past 12 months: No If you are a former smoker, when did you quit?: 15 YEARS AGO Hx Alcohol Use: No Drug/Substance Use Hx: No Substance Use Type: None Review of Systems - Review of Systems Able to Perform ROS?: Yes Comments:: 02/18/19 15:08 GENERAL/CONSTITUTIONAL: No fever or chills. No weakness. HEAD, EYES, EARS, NOSE AND THROAT: No change in vision. No ear pain or discharge. No sore throat. CARDIOVASCULAR: + chest pain. No shortness of breath. RESPIRATORY: + cough. No wheezing, or hemoptysis. GASTROINTESTINAL: +nausea. No vomiting, diarrhea or constipation. GENITOURINARY: No dysuria, frequency, or change in urination. MUSCULOSKELETAL: No joint or muscle swelling or pain. No neck or back pain. SKIN: No rash NEUROLOGIC: No headache, vertigo, loss of consciousness, or change in strength/ sensation. ENDOCRINE: No increased thirst. No abnormal weight change. HEMATOLOGIC/LYMPHATIC: No anemia, easy bleeding, or history of blood clots. ALLERGIC/IMMUNOLOGIC: No hives or skin allergy. *Physical Exam - Physical Exam 02/18/19 15:09 GENERAL: The patient is awake, alert, and fully oriented, in no acute distress. HEAD: Normal with no signs of trauma. NECK: Normal range of motion, supple without lymphadenopathy, JVD, or masses. LUNGS: + distant breath sounds. Breath sounds clear to auscultation bilaterally. No focally decreased breath sounds. No wheeze/crackles. HEART: Regular rate and rhythm, normal S1 and S2 without murmur or rub. ABDOMEN: Soft/nontender/nondistended. BS wnl. No guarding or rebound. No palpable masses. No hepatosplenomegaly. EXTREMITIES: Normal range of motion, no edema. No clubbing or cyanosis. No cords, erythema, or tenderness. SKIN: Warm, Dry, normal turgor, no rashes or lesions noted. Heart Score/ECG Review #1 ECG reviewed & interpreted by me at: 15:21 General ECG Interpretation: Sinus Rhythm (slight tachy @ 110 (on nebs)), Normal Intervals (qtc 427), No acute ischemic changes ED Treatment Course - LABORATORY CBC & Chemistry Diagram: 02/18/19 15:45 02/18/19 15:53 - RADIOLOGY Radiology Studies Ordered: Category Date Time Status CHEST PA & LAT [RAD] Stat Radiology 02/18/19 14:28 Ordered Medical Decision Making - Medical Decision Making 02/18/19 15:26 A portion of this note was documented by scribe services under my direction. I have reviewed the details of the note, within reason, and agree with the documentation with the following case summary and management plan written by me. 83-year-old female with history of COPD admittedly noncompliant with medications presents with increased cough over the last 2 days, occasionally productive of green sputum, without associated chest pain or fevers or chills. No nasal congestion, no persistent chest pain. Patient has history of pneumonia , presents to rule out infection. Vitals as noted, no acute distress speaking full sentences with occasional dry cough Good air entry with minimal wheezing, no focally decreased breath sounds, no prolonged expiration Heart is regular slight tachycardia 83-year-old female with increased cough over the last 2 days, history of COPD and has been diagnosed with pneumonia in the past. Well-appearing without acute respiratory distress or hypoxia, exam findings as noted. Presentation seems most consistent with mild COPD exacerbation, likely due to underlying viral respiratory infection, rule out pneumonia. EKG without acute ischemia CXR with RLL infiltrate - CAP abx ordered nebs check labs, cultures. reassess, dispo in consultation with PCP, Dr. Benítez. 02/18/19 16:36 d/w PCP Dr. Santiago (clarified with daughter), recommends admission given PNA, h/ o COPD, and acutely more hypoxic than baseline. Pt otherwise comfortable, still coughing, received abx. Accepted for inpatient med/surg by Dr. Peterson, signout given to ADAL Odom. Labs pending, will follow. 02/18/19 17:12 wbc 13.7, comp pending. 02/18/19 17:20 comp wnl, trop negative. received nebs and abx, awaiting inpatient bed. Discharge - Discharge Information Problems reviewed: Yes Clinical Impression/Diagnosis: COPD exacerbation, Cough Condition: Stable - Follow up/Referral Referrals: Luzma Santiago MD [Primary Care Provider] - - Patient Discharge Instructions - Post Discharge Activity
[2019-02-18] MEDS ORDERED: CEFTRIAXONE 1,000 MG in DEXTROSE 5%-WATER - 50 ML IVPB ONE (15:31)
[2019-02-18] MEDS ORDERED: AZITHROMYCIN IVPB 500 MG in DEXTROSE 5%-WATER - 250 ML IVPB ONE (15:31)
[2019-02-18] MEDS ORDERED: AZITHROMYCIN 500 MG VIAL IVPB ONE (16:20)
[2019-02-18] MEDS ORDERED: cefTRIAXone SODIUM 1 GM VIAL ONE (16:20)
[2019-02-18 16:53] LABS: BASO % 0.4 % (0-2.0); EOS % 0.8 % (0-4.5); HEMATOCRIT 43.6 % (32.4-45.2); HEMOGLOBIN 14.1 GM/dl (10.7-15.3); LYMPH % 20.2 % (8-40); MCH 26.9 pg (25.7-33.7); MCHC 32.3 g/dl (32.0-36.0); MEAN CELL VOLUME 83.4 fl (80-96); MEAN PLT VOLUME 8.5 fl (7.5-11.1); MONO % 10.7 % (3.8-10.2); NEUT % 67.9 % (42.8-82.8); PLATELET COUNT 417 K/MM3 (134-434); RBC 5.23 M/mm3 (3.60-5.2); RDW 13.6 % (11.6-15.6); WHITE BLOOD COUNT 13.7 K/mm3 (4.0-10.8)
[2019-02-18 17:07] LABS: ALBUMIN 3.3 g/dl (3.4-5.0); BILIRUBIN,TOTAL 1.3 mg/dl (0.2-1); CALCIUM 8.7 mg/dl (8.5-10); CREATININE 0.6 mg/dl (0.55-1.3); POTASSIUM 3.7 mmol/L (3.5-5.1); TOT PROT 6.6 g/dl (6.4-8.2)
[2019-02-18 18:34] VITALS: BMI 25.9
--- NOTE | 2019-02-18 18:52 | HP ---
CHIEF COMPLAINT: Cough, fever PCP: Dr. Luzma Santiago HISTORY OF PRESENT ILLNESS: 83 year-old female with a PMH significant for COPD non-compliant with meds, frequent pneumonias, PUD with h/o GI bleed (10/2017), nephrolithiasis and frequent UTIs, and hypothyroidism present to the ED with several days of productive cough with greenish phlegm. Pt reports associated nausea and chest pain, which she notes is due to her constantly coughing. Patient has had intermittent dysuria over the past week. ER course was notable for: (1) T100.4, p122, RR 22, WBC 13.7k (2) Azithro 500mg x 1; ceftriaxone 1g x 1 (3) duonebs x 3 Recent Travel: No PAST MEDICAL HISTORY: COPD Peptic ulcer disease Upper GI bleed 10/2017 Nephrolithiasis Frequent UTIs Hypothyroidism Gout PAST SURGICAL HISTORY: Odette surgery metal naty Partial thyroidectomy Social History: Smoking: former, quit 15 years ago (?? in 2018 stated she was current smoker) Alcohol: no Drugs: no Allergies No Known Allergies Allergy (Verified 02/18/19 15:42) HOME MEDICATIONS: Home Medications Medication Instructions Recorded Levothyroxine [Synthroid -] 50 mcg PO DAILY 09/03/16 Tiotropium [place] [Spiriva 2 puff IH DAILY #1 inhaler 11/22/17 Respimat] Duloxetine HCl [Cymbalta] 20 mg PO DAILY 03/05/18 REVIEW OF SYSTEMS CONSTITUTIONAL: Absent: fever, chills, diaphoresis, generalized weakness, malaise, loss of appetite, weight change HEENT: Absent: rhinorrhea, nasal congestion, throat pain, throat swelling, difficulty swallowing, mouth swelling, ear pain, eye pain, visual changes CARDIOVASCULAR: Absent: chest pain, syncope, palpitations, irregular heart rate, lightheadedness , peripheral edema RESPIRATORY: +fever, cough Absent: cough, shortness of breath, dyspnea with exertion, orthopnea, wheezing, stridor, hemoptysis GASTROINTESTINAL: Absent: abdominal pain, abdominal distension, nausea, vomiting, diarrhea, constipation, melena, hematochezia GENITOURINARY: +dysuria Absent: frequency, urgency, hesitancy, hematuria, flank pain, genital pain MUSCULOSKELETAL: Absent: myalgia, arthralgia, joint swelling, back pain, neck pain SKIN: Absent: rash, itching, pallor HEMATOLOGIC/IMMUNOLOGIC: Absent: easy bleeding, easy bruising, lymphadenopathy, frequent infections ENDOCRINE: Absent: unexplained weight gain, unexplained weight loss, heat intolerance, cold intolerance NEUROLOGIC: Absent: headache, focal weakness or paresthesias, dizziness, unsteady gait, seizure, mental status changes, bladder or bowel incontinence PSYCHIATRIC: Absent: anxiety, depression, suicidal or homicidal ideation, hallucinations. PHYSICAL EXAMINATION Vital Signs - 24 hr 02/18/19 02/18/19 02/18/19 14:25 17:21 17:46 Temperature 99.2 F 100.4 F H Pulse Rate 110 H 122 H Pulse Rate [ 110 H Right Radial] Respiratory 20 22 H Rate Blood Pressure 120/67 152/66 Blood Pressure 136/55 L [Right Arm] O2 Sat by Pulse 90 L 100 92 L Oximetry (%) GENERAL: Awake, alert, and fully oriented. Coughing, appears weak, ill-appearing HEAD: Normal with no signs of trauma. EYES: Pupils equal, round and reactive to light, extraocular movements intact, sclera anicteric, conjunctiva clear. LUNGS: Diminished breath sounds, poor air movement, no wheezing HEART: Regular rate and rhythm, S1 and S2 ABDOMEN: Soft, nontender, not distended UPPER EXTREMITIES: 2+ pulses, warm, well-perfused. No cyanosis. No clubbing. No peripheral edema. LOWER EXTREMITIES: 2+ pulses, warm, well-perfused. No calf tenderness. No peripheral edema. NEUROLOGICAL: Cranial nerves II-XII intact. Normal speech. Laboratory Results - last 24 hr 02/18/19 02/18/19 02/18/19 15:45 15:52 15:52 WBC 13.7 H RBC 5.23 H Hgb 14.1 Hct 43.6 MCV 83.4 MCH 26.9 MCHC 32.3 RDW 13.6 Plt Count 417 MPV 8.5 Absolute Neuts (auto) 9.2 Neutrophils % 67.9 Lymphocytes % 20.2 Monocytes % 10.7 H Eosinophils % 0.8 Basophils % 0.4 Sodium Potassium Chloride Carbon Dioxide Anion Gap BUN Creatinine Est GFR (CKD-EPI)AfAm Est GFR (CKD-EPI)NonAf Random Glucose Calcium Total Bilirubin AST ALT Alkaline Phosphatase Creatine Kinase 84 Troponin I < 0.03 Total Protein Albumin 02/18/19 15:53 WBC RBC Hgb Hct MCV MCH MCHC RDW Plt Count MPV Absolute Neuts (auto) Neutrophils % Lymphocytes % Monocytes % Eosinophils % Basophils % Sodium 135 L Potassium 3.7 Chloride 96 L Carbon Dioxide 29 Anion Gap 10 BUN 15.0 Creatinine 0.6 Est GFR (CKD-EPI)AfAm 97.69 Est GFR (CKD-EPI)NonAf 84.29 Random Glucose 114 H Calcium 8.7 Total Bilirubin 1.3 H AST 23 ALT 15 Alkaline Phosphatase 70 Creatine Kinase Troponin I Total Protein 6.6 Albumin 3.3 L ASSESSMENT/PLAN 83 year-old female with a PMH significant for COPD non-compliant with meds and frequent pneumonias, PUD with h/o GI bleed (10/2017), and hypothyroidism. Admitted for community-acquired pneumonia and possible UTI. Sepsis likely secondary to community-acquired pneumonia --T100.4, p122, RR 22, WBC 13.7k, CXR possible early infiltrate right base --lactic acid pending --ceftriaxone (day #1), azithro (day #1) --start bolus fluids 1.5L, then hourly rate --duonebs --titrate SpO2 to 94% --pre post COPD --no wheezing --duonebs --continue Spiriva --pulmonary consult Dysuria --UA & UC ordered --ceftriaxone as above Hypothyroidism --contiue levothyroxine FEN Fluids: after bolus fluids, NS @ 75mL/hr Electrolytes: replete as indicated Nutrition: regular DVT prophylaxis: subq heparin Physical therapy Pre post Dispo: continues to require inpatient care. Full code. Visit type - Emergency Visit Emergency Visit: Yes ED Registration Date: 02/18/19 Care time: The patient presented to the Emergency Department on the above date and was hospitalized for further evaluation of their emergent condition. - New Patient This patient is new to me today: Yes Date on this admission: 02/18/19 - Critical Care Critical Care patient: No
[2019-02-18] MEDS ORDERED: ACETAMINOPHEN 325 MG TABLET (FP) PO PRN (18:55)
[2019-02-18] MEDS ORDERED: SODIUM CHLORIDE 1,000 ML IV STA (19:09)
[2019-02-18] MEDS ORDERED: SODIUM CHLORIDE 500 ML IV STA (19:10)
[2019-02-18] MEDS: SODIUM CHLORIDE 1,000 ML IV SCH (21:59)
[2019-02-18] MEDS: HEPARIN NA (PORCINE) 5,000 UNITS/ML 1ML VIAL SQ SCH ×2 (21:59→22:03)
[2019-02-18] MEDS: guaiFENesin/D-METHORPHAN HB 10 ML UNIT-DOSE CUPS PO PRN (23:06)
[2019-02-18 23:34] LABS: EPITHELIAL CELLS FEW /hpf
[2019-02-19] MEDS: HEPARIN NA (PORCINE) 5,000 UNITS/ML 1ML VIAL SQ SCH ×3 (06:06→21:30)
[2019-02-19] MEDS: LEVOTHYROXINE NA 50 MCG TABLET (FP) PO SCH (06:06)
[2019-02-19] MEDS: ALBUTEROL SO4 2.5/IPRATROPIUM 0.5 INH SOL 3 ML VIAL.NEB. NEB SCH ×4 (08:02→21:30)
[2019-02-19 08:46] LABS: BASO % 0.4 % (0-2.0); EOS % 0.7 % (0-4.5); HEMATOCRIT 38.5 % (32.4-45.2); HEMOGLOBIN 12.5 GM/dl (10.7-15.3); LYMPH % 9.1 % (8-40); MCH 27.2 pg (25.7-33.7); MCHC 32.5 g/dl (32.0-36.0); MEAN CELL VOLUME 83.7 fl (80-96); MEAN PLT VOLUME 8.7 fl (7.5-11.1); MONO % 11.2 % (3.8-10.2); NEUT % 78.6 % (42.8-82.8); PLATELET COUNT 356 K/MM3 (134-434); WHITE BLOOD COUNT 10.9 K/mm3 (4.0-10.8)
[2019-02-19] MEDS ORDERED: PT OWN MED DRAWER 7, Y5N ONE (08:50)
[2019-02-19 08:54] LABS: ALBUMIN 2.7 g/dl (3.4-5.0); BILIRUBIN,TOTAL 0.8 mg/dl (0.2-1); CALCIUM 7.7 mg/dl (8.5-10); CREATININE 0.6 mg/dl (0.55-1.3); MAGNESIUM 1.6 mg/dL (1.8-2.4); POTASSIUM 3.8 mmol/L (3.5-5.1); TOT PROT 5.6 g/dl (6.4-8.2)
[2019-02-19] MEDS: TIOTROPIUM BROMIDE 2.5 MCG (SPIRIVA) RESPIMAT INHALER IH SCH (09:14)
[2019-02-19] MEDS: guaiFENesin/D-METHORPHAN HB 10 ML UNIT-DOSE CUPS PO PRN (09:15)
[2019-02-19] MEDS: DULoxetine HCL 20 MG CAPSULE.DR PO SCH (09:15)
[2019-02-19] MEDS: CEFTRIAXONE 1 G/50 ML PREMIX 50 ML IVPB SCH (09:15)
[2019-02-19] MEDS: AZITHROMYCIN IVPB 250 MG in DEXTROSE 5%-WATER - 250 ML IVPB SCH (09:15)
--- NOTE | 2019-02-19 09:29 | PN ---
Progress Note, Physician Chief Complaint: C/O Rt Toe pain and SOB History of Present Illness: 83 year-old female with a PMH significant for COPD non-compliant with meds, frequent pneumonias, PUD with h/o GI bleed (10/2017), nephrolithiasis and frequent UTIs, and hypothyroidism present to the ED with several days of productive cough with greenish phlegm. Pt reports associated nausea and chest pain, which she notes is due to her constantly coughing. Patient has had intermittent dysuria over the past week. - Current Medication List Current Medications: Active Medications Acetaminophen (Tylenol -) 650 mg PO Q6H PRN PRN Reason: FEVER Last Admin: 02/18/19 19:00 Dose: 650 mg Albuterol/Ipratropium (Duoneb -) 1 amp NEB RQID [facility] Last Admin: 02/19/19 08:02 Dose: 1 amp Duloxetine HCl (Cymbalta -) 20 mg PO DAILY [facility] Last Admin: 02/19/19 09:15 Dose: 20 mg Guaifenesin (Robitussin Dm -) 10 ml PO Q6H PRN PRN Reason: COUGH Last Admin: 02/19/19 09:15 Dose: 10 ml Heparin Sodium (Porcine) (Heparin -) 5,000 unit SQ TID [facility] Last Admin: 02/19/19 06:06 Dose: 5,000 unit Azithromycin 250 mg/ Dextrose 250 mls @ 250 mls/hr IVPB DAILY [facility] Stop: 02/22/19 10:59 Last Admin: 02/19/19 09:15 Dose: 250 mls/hr Ceftriaxone Sodium (Ceftriaxone 1 Gm-D5w Bag) 50 mls @ 100 mls/hr IVPB DAILY [facility]; Protocol Last Admin: 02/19/19 09:15 Dose: 100 mls/hr Sodium Chloride (Normal Saline -) 1,000 mls @ 75 mls/hr IV ASDIR [facility] Last Admin: 02/18/19 21:59 Dose: 75 mls/hr Levothyroxine Sodium (Synthroid -) 50 mcg PO ACBK [facility] Last Admin: 02/19/19 06:06 Dose: 50 mcg Tiotropium [place] (Spiriva Respimat) 2 puff IH DAILY [facility] Last Admin: 02/19/19 09:14 Dose: 2 puff - Objective Vital Signs: Vital Signs Temperature 98.2 F 02/19/19 05:00 Pulse Rate 91 H 02/19/19 05:00 Respiratory Rate 19 02/19/19 05:00 Blood Pressure 117/70 02/19/19 05:00 O2 Sat by Pulse Oximetry (%) 98 02/19/19 05:00 Elderly F comfortable not in distress HEENT: Mm moist, no anemia, PERRLA EOMI NECK: No JVd No Bruit CHEST: B/L wheezing CVS; SS2 R no m/g/r ABD: No distention, non tender BS + EXT: No laura afeet, no caldf tenderness Rt Toe tenderness 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 Labs: CBC, BMP 02/19/19 07:10 02/19/19 07:10 Problem List - Problems (1) Community acquired bacterial pneumonia Assessment/Plan: Cont Azithromycin and Ceftriaxone Problems reviewed: Yes Code(s): J15.9 - UNSPECIFIED BACTERIAL PNEUMONIA (2) COPD exacerbation Assessment/Plan: Continue Solu-Medrol and DuoNeb follow pulmonary recommendation Code(s): J44.1 - CHRONIC OBSTRUCTIVE PULMONARY DISEASE W (ACUTE) EXACERBATION (3) Hypothyroidism Assessment/Plan: Continue levothyroxine Problems reviewed: Yes Code(s): E03.9 - HYPOTHYROIDISM, UNSPECIFIED Qualifiers: Hypothyroidism type: acquired Qualified Code(s): E03.9 - Hypothyroidism, unspecified (4) Gout Assessment/Plan: History of gout continue colchicine as needed rest Problems reviewed: Yes Code(s): M10.9 - GOUT, UNSPECIFIED Assessment/Plan Cont current Meds OIV Steroids added Colchicine .6 mg PRN for Gout(home meds)
--- NOTE | 2019-02-19 09:42 | CON.PULM ---
Consult Consult Specialty:: PULMONARY Referred by:: JENNIFER Reason for Consultation:: SOB/COUGH - History of Present Illness Chief Complaint: SOB/COUGH History of Present Illness: The patient is an 83 year old female with a PMH of COPD (non compliant with medications), fibromyalgia, GI bleed, frequent pneumonias and urinary tract infections presents to the ED with several days of productive cough with greenish phlegm. Pt reports associated nausea and chest pain, which she notes is due to her constantly coughing. The patient denies shortness of breath, headache and dizziness. Denies fever, chills, vomiting, diarrhea and constipation. Denies dysuria, frequency, urgency and hematuria. 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 No: AFIB Pulmonary: Yes: COPD, Pneumonia. No: O2 Dependent Gastrointestinal: Yes: Diverticulosis (by CT scan imaging 2016), Peptic Ulcer Disease (by patient history), Other (Large hiatal hernia: by recent CTA of the abdomen performed 08/14). No: Ascites Hepatobiliary: No: Cirrhosis Renal/: Yes: Other (Nephrolithiasis) Heme/Onc: No: Anemia Psych: No: Addictions Rheumatology: Yes: Fibromyalgia Endocrine: Yes: Hypothyroidism - Alcohol/Substance Use Hx Alcohol Use: No - Smoking History Smoking history: Former smoker Have you smoked in the past 12 months: No If you are a former smoker, when did you quit?: 15 YEARS AGO - Social History Usual Living Arrangement: Alone () ADL: Family Assistance History of Recent Travel: No Home Medications - Allergies Allergies/Adverse Reactions: Allergies Allergy/AdvReac Type Severity Reaction Status Date / Time No Known Allergies Allergy Verified 02/18/19 15:42 - Home Medications Home Medications: Ambulatory Orders Levothyroxine [Synthroid -] 50 mcg PO DAILY 09/03/16 Tiotropium [place] [Spiriva Respimat] 2 puff IH DAILY #1 inhaler 11/22/17 Duloxetine HCl [Cymbalta] 20 mg PO DAILY 03/05/18 Family Medical History Family History: Unremarkable Review of Systems - Review of Systems Constitutional: denies: Fever Eyes: denies: Blurred Vision HENT: denies: Difficult Swallowing Neck: denies: Decreased ROM Cardiovascular: reports: Chest Pain, Shortness of Breath Respiratory: reports: Cough, Exercise Intolerance, SOB, SOB on Exertion. denies : Hemoptysis, Wheezing Gastrointestinal: denies: Abdominal Pain Genitourinary: denies: Burning Physical Exam Vital Sings: Vital Signs Temperature 98.2 F 02/19/19 05:00 Pulse Rate 91 H 02/19/19 05:00 Respiratory Rate 19 02/19/19 05:00 Blood Pressure 117/70 02/19/19 05:00 O2 Sat by Pulse Oximetry (%) 98 02/19/19 05:00 Constitutional: Yes: Calm Eyes: Yes: EOM Intact HENT: Yes: Normocephalic Neck: Yes: Trachea Midline Cardiovascular: Yes: Murmur, S1, S2 Respiratory: Yes: Diminished Gastrointestinal: Yes: Normal Bowel Sounds Edema: No Labs: CBC, BMP 02/19/19 07:10 02/19/19 07:10 Imaging - Results Chest X-ray: Report Reviewed, Image Reviewed Problem List - Problems (1) COPD exacerbation Code(s): J44.1 - CHRONIC OBSTRUCTIVE PULMONARY DISEASE W (ACUTE) EXACERBATION (2) Cough Code(s): R05 - COUGH (3) Bronchitis Code(s): J40 - BRONCHITIS, NOT SPECIFIED ACUTE OR CHRONIC (4) Hypothyroidism Code(s): E03.9 - HYPOTHYROIDISM, UNSPECIFIED Qualifiers: Hypothyroidism type: acquired Qualified Code(s): E03.9 - Hypothyroidism, unspecified Assessment/Plan ?EARLY INFILTRATE RIGHT BASE A/E COPD ACUTE GOUT FMR H/O GIB H/O FREQUENT PNEUMONIAS AGREE WITH ABS/BRONCHODILATORS/O2/EARLY AMBULATION/DVT PROPHYLAXSIS SHORT COURSE MEDROL FOR GOUT ( 4 DOSES ORDERED) THANK YOU FOR THIS CONSULT Sae GARCIA MD
[2019-02-19] MEDS ORDERED: MAGNESIUM 1GM/D5W - 1 GM/100 ML IVPB IVPB ONE (09:45)
[2019-02-19] MEDS: methylPREDNISolone NA SUCC 40 MG/1 ML VIAL IVPUSH SCH ×3 (09:56→21:30)
--- NOTE | 2019-02-19 10:16 | EKG ---
Test Reason : Blood Pressure : / mmHG Vent. Rate : 110 BPM Atrial Rate : 110 BPM P-R Int : 190 ms QRS Dur : 080 ms QT Int : 316 ms P-R-T Axes : 061 040 032 degrees QTc Int : 427 ms SINUS TACHYCARDIA OTHERWISE NORMAL ECG WHEN COMPARED WITH ECG OF 22-FEB-2018 18:49, NO SIGNIFICANT CHANGE WAS FOUND Confirmed by Froylan Charlton MD ([id number]) on 02/19/2019 10:16:44 AM Referred By: Confirmed By:Froylan Charlton MD
[2019-02-19] MEDS ORDERED: COLCHICINE 0.6 MG CAP PO PRN ×2 (10:41→13:49)
[2019-02-19] MEDS: SODIUM CHLORIDE 1,000 ML IV SCH (19:15)
[2019-02-20] MEDS: methylPREDNISolone NA SUCC 40 MG/1 ML VIAL IVPUSH SCH ×2 (03:23→08:52)
[2019-02-20] MEDS: guaiFENesin/D-METHORPHAN HB 10 ML UNIT-DOSE CUPS PO PRN (06:44)
[2019-02-20] MEDS: HEPARIN NA (PORCINE) 5,000 UNITS/ML 1ML VIAL SQ SCH ×3 (06:44→21:19)
[2019-02-20] MEDS: LEVOTHYROXINE NA 50 MCG TABLET (FP) PO SCH (06:44)
[2019-02-20] MEDS: ALBUTEROL SO4 2.5/IPRATROPIUM 0.5 INH SOL 3 ML VIAL.NEB. NEB SCH ×4 (08:52→21:19)
[2019-02-20] MEDS ORDERED: PT OWN MED DRAWER 7, Y5N ONE (09:08)
[2019-02-20] MEDS: AZITHROMYCIN IVPB 250 MG in DEXTROSE 5%-WATER - 250 ML IVPB SCH (09:28)
[2019-02-20] MEDS: DULoxetine HCL 20 MG CAPSULE.DR PO SCH (09:28)
[2019-02-20] MEDS: TIOTROPIUM BROMIDE 2.5 MCG (SPIRIVA) RESPIMAT INHALER IH SCH (09:28)
[2019-02-20] MEDS: CEFTRIAXONE 1 G/50 ML PREMIX 50 ML IVPB SCH (09:28)
[2019-02-20 10:28] LABS: BASO % 0.1 % (0-2.0); HEMATOCRIT 39.1 % (32.4-45.2); LYMPH % 7.6 % (8-40); MCHC 33.3 g/dl (32.0-36.0); MEAN CELL VOLUME 81.2 fl (80-96); MEAN PLT VOLUME 8.6 fl (7.5-11.1); MONO % 3.1 % (3.8-10.2); NEUT % 89.2 % (42.8-82.8); PLATELET COUNT 381 K/MM3 (134-434); RBC 4.82 M/mm3 (3.60-5.2); RDW 14.4 % (11.6-15.6); WHITE BLOOD COUNT 8.1 K/mm3 (4.0-10.0)
[2019-02-20 11:31] LABS: BLOOD UREA NITROGEN 9.5 mg/dL (7-18); CALCIUM 8.6 mg/dL (8.5-10.1); CREATININE 0.6 mg/dL (0.55-1.3); POTASSIUM 4.2 mmol/L (3.5-5.1)
--- NOTE | 2019-02-20 12:56 | PN ---
Progress Note, Physician Chief Complaint: Complaint left toe pain and SOB - Current Medication List Current Medications: Active Medications Acetaminophen (Tylenol -) 650 mg PO Q6H PRN PRN Reason: FEVER Last Admin: 02/18/19 19:00 Dose: 650 mg Albuterol/Ipratropium (Duoneb -) 1 amp NEB RQID [facility] Last Admin: 02/20/19 11:45 Dose: 1 amp Colchicine (Colcrys) 0.6 mg PO DAILY PRN PRN Reason: PAIN Duloxetine HCl (Cymbalta -) 20 mg PO DAILY [facility] Last Admin: 02/20/19 09:28 Dose: 20 mg Guaifenesin (Robitussin Dm -) 10 ml PO Q6H PRN PRN Reason: COUGH Last Admin: 02/20/19 06:44 Dose: 10 ml Heparin Sodium (Porcine) (Heparin -) 5,000 unit SQ TID [facility] Last Admin: 02/20/19 06:44 Dose: 5,000 unit Azithromycin 250 mg/ Dextrose 250 mls @ 250 mls/hr IVPB DAILY [facility] Stop: 02/22/19 10:59 Last Admin: 02/20/19 09:28 Dose: 250 mls/hr Ceftriaxone Sodium (Ceftriaxone 1 Gm-D5w Bag) 50 mls @ 100 mls/hr IVPB DAILY [facility]; Protocol Last Admin: 02/20/19 09:28 Dose: 100 mls/hr Sodium Chloride (Normal Saline -) 1,000 mls @ 75 mls/hr IV ASDIR [facility] Last Admin: 02/19/19 19:15 Dose: 75 mls/hr Levothyroxine Sodium (Synthroid -) 50 mcg PO ACBK [facility] Last Admin: 02/20/19 06:44 Dose: 50 mcg Tiotropium [place] (Spiriva Respimat) 2 puff IH DAILY [facility] Last Admin: 02/20/19 09:28 Dose: 2 puff - Objective Vital Signs: Vital Signs Temperature 97.7 F 02/20/19 06:00 Pulse Rate 91 H 02/20/19 10:00 Respiratory Rate 18 02/20/19 10:00 Blood Pressure 137/67 02/20/19 06:00 O2 Sat by Pulse Oximetry (%) 94 L 02/20/19 10:19 Elderly F comfortable not in distress HEENT: Mm moist, no anemia, PERRLA EOMI NECK: No JVd No Bruit CHEST: B/L wheezing CVS; SS2 R no m/g/r ABD: No distention, non tender BS + EXT: No edema no calf tenderness left great toe tenderness 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 Labs: CBC, BMP 02/20/19 08:30 02/20/19 08:30 Problem List - Problems (1) Community acquired bacterial pneumonia Assessment/Plan: Cont Azithromycin and Ceftriaxone Code(s): J15.9 - UNSPECIFIED BACTERIAL PNEUMONIA (2) COPD exacerbation Assessment/Plan: Continue Solu-Medrol and DuoNeb follow pulmonary recommendation Code(s): J44.1 - CHRONIC OBSTRUCTIVE PULMONARY DISEASE W (ACUTE) EXACERBATION (3) Hypothyroidism Assessment/Plan: Continue levothyroxine Code(s): E03.9 - HYPOTHYROIDISM, UNSPECIFIED Qualifiers: Hypothyroidism type: acquired Qualified Code(s): E03.9 - Hypothyroidism, unspecified (4) Gout Assessment/Plan: History of gout continue colchicine as needed rest Code(s): M10.9 - GOUT, UNSPECIFIED
[2019-02-20] MEDS: SODIUM CHLORIDE 1,000 ML IV SCH (19:15)
[2019-02-21] MEDS: LEVOTHYROXINE NA 50 MCG TABLET (FP) PO SCH (06:46)
[2019-02-21] MEDS: HEPARIN NA (PORCINE) 5,000 UNITS/ML 1ML VIAL SQ SCH ×3 (06:47→22:00)
[2019-02-21 08:03] LABS: CALCIUM 8.2 mg/dl (8.5-10); CREATININE 0.5 mg/dl (0.55-1.3); POTASSIUM 3.7 mmol/L (3.5-5.1)
[2019-02-21] MEDS ORDERED: PT OWN MED DRAWER 7, Y5N ONE (09:37)
[2019-02-21] MEDS: ALBUTEROL SO4 2.5/IPRATROPIUM 0.5 INH SOL 3 ML VIAL.NEB. NEB SCH ×3 (09:39→20:23)
[2019-02-21] MEDS: CEFTRIAXONE 1 G/50 ML PREMIX 50 ML IVPB SCH (09:40)
[2019-02-21] MEDS: DULoxetine HCL 20 MG CAPSULE.DR PO SCH (09:42)
[2019-02-21] MEDS: TIOTROPIUM BROMIDE 2.5 MCG (SPIRIVA) RESPIMAT INHALER IH SCH (09:42)
[2019-02-21] MEDS: AZITHROMYCIN IVPB 250 MG in DEXTROSE 5%-WATER - 250 ML IVPB SCH (09:43)
[2019-02-21 09:45] LABS: BASO % 0.2 % (0-2.0); EOS % 0.2 % (0-4.5); HEMATOCRIT 39.8 % (32.4-45.2); HEMOGLOBIN 12.9 GM/dl (10.7-15.3); LYMPH % 18.4 % (8-40); MCH 27.2 pg (25.7-33.7); MCHC 32.5 g/dl (32.0-36.0); MEAN CELL VOLUME 83.7 fl (80-96); MONO % 11.4 % (3.8-10.2); NEUT % 69.8 % (42.8-82.8); PLATELET COUNT 431 K/MM3 (134-434); RBC 4.75 M/mm3 (3.60-5.2); RDW 13.5 % (11.6-15.6); WHITE BLOOD COUNT 11.9 K/mm3 (4.0-10.8)
--- NOTE | 2019-02-21 12:17 | PN ---
Progress Note, Physician - Current Medication List Current Medications: Active Medications Acetaminophen (Tylenol -) 650 mg PO Q6H PRN PRN Reason: FEVER Last Admin: 02/18/19 19:00 Dose: 650 mg Albuterol/Ipratropium (Duoneb -) 1 amp NEB RQID [facility] Last Admin: 02/21/19 09:39 Dose: 1 amp Colchicine (Colcrys) 0.6 mg PO DAILY PRN PRN Reason: PAIN Last Admin: 02/21/19 09:41 Dose: 0.6 mg Duloxetine HCl (Cymbalta -) 20 mg PO DAILY [facility] Last Admin: 02/21/19 09:42 Dose: 20 mg Guaifenesin (Robitussin Dm -) 10 ml PO Q6H PRN PRN Reason: COUGH Last Admin: 02/20/19 06:44 Dose: 10 ml Heparin Sodium (Porcine) (Heparin -) 5,000 unit SQ TID [facility] Last Admin: 02/21/19 06:47 Dose: 5,000 unit Azithromycin 250 mg/ Dextrose 250 mls @ 250 mls/hr IVPB DAILY [facility] Stop: 02/22/19 10:59 Last Admin: 02/21/19 09:43 Dose: 250 mls/hr Ceftriaxone Sodium (Ceftriaxone 1 Gm-D5w Bag) 50 mls @ 100 mls/hr IVPB DAILY [facility]; Protocol Last Admin: 02/21/19 09:40 Dose: 100 mls/hr Sodium Chloride (Normal Saline -) 1,000 mls @ 75 mls/hr IV ASDIR [facility] Last Admin: 02/20/19 19:15 Dose: 75 mls/hr Levothyroxine Sodium (Synthroid -) 50 mcg PO ACBK [facility] Last Admin: 02/21/19 06:46 Dose: 50 mcg Tiotropium [place] (Spiriva Respimat) 2 puff IH DAILY [facility] Last Admin: 02/21/19 09:42 Dose: 2 puff - Objective Vital Signs: Vital Signs Temperature 98.0 F 02/21/19 10:00 Pulse Rate 102 H 02/21/19 10:00 Respiratory Rate 19 02/21/19 10:00 Blood Pressure 129/71 02/21/19 10:00 O2 Sat by Pulse Oximetry (%) 98 02/21/19 10:00 Labs: CBC, BMP 02/21/19 07:10 02/21/19 07:10
--- NOTE | 2019-02-21 15:52 | PN ---
Physical Exam: SUBJECTIVE: Patient seen and examined OBJECTIVE: Vital Signs Period Temp Pulse Resp BP Sys/Maynard Pulse Ox Last 24 Hr 97.5 F-98.7 F 81-103 17-19 99-157/61-84 91-98 Elderly Female comfortable no s/s of distress HEENT: Mm moist, no anemia, PERRLA EOMI NECK: No JVd No Bruit CHEST: CTA bilat, poor air movement Bilat lower lobes. 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 Laboratory Results - last 24 hr 02/21/19 02/21/19 07:10 07:10 WBC 11.9 H RBC 4.75 Hgb 12.9 Hct 39.8 MCV 83.7 MCH 27.2 MCHC 32.5 RDW 13.5 Plt Count 431 MPV 9.0 Absolute Neuts (auto) 8.2 Neutrophils % 69.8 Lymphocytes % 18.4 Monocytes % 11.4 H Eosinophils % 0.2 Basophils % 0.2 Sodium 138 Potassium 3.7 Chloride 102 Carbon Dioxide 28 Anion Gap 8 BUN 14.0 Creatinine 0.5 L Est GFR (CKD-EPI)AfAm 103.73 Est GFR (CKD-EPI)NonAf 89.50 Random Glucose 89 Calcium 8.2 L Active Medications Generic Name Dose Route Start Last Admin Trade Name Freq PRN Reason Stop Dose Admin Acetaminophen 650 mg 02/18/19 18:55 02/18/19 19:00 Tylenol - PO 650 mg Q6H PRN Administration FEVER Albuterol/Ipratropium 1 amp 02/18/19 20:00 02/21/19 14:58 Duoneb - NEB 1 amp RQID [facility] Administration Colchicine 0.6 mg 02/19/19 13:49 02/21/19 09:41 Colcrys PO 0.6 mg DAILY PRN Administration PAIN Duloxetine HCl 20 mg 02/19/19 10:00 02/21/19 09:42 Cymbalta - PO 20 mg DAILY [facility] Administration Guaifenesin 10 ml 02/18/19 22:36 02/20/19 06:44 Robitussin Dm - PO 10 ml Q6H PRN Administration COUGH Heparin Sodium (Porcine) 5,000 unit 02/18/19 22:00 02/21/19 14:58 Heparin - SQ 5,000 unit TID [facility] Administration Azithromycin 250 mg/ Dextrose 250 mls @ 250 mls/hr 02/19/19 10:00 02/21/19 09 :43 IVPB 02/22/19 10:59 250 mls/hr DAILY [facility] Administration Ceftriaxone Sodium 50 mls @ 100 mls/hr 02/19/19 10:00 02/21/19 09:40 Ceftriaxone 1 Gm-D5w Bag IVPB 100 mls/hr DAILY [facility] Administration Protocol Sodium Chloride 1,000 mls @ 75 mls/hr 02/18/19 19:15 02/20/19 19:15 Normal Saline - IV 75 mls/hr ASDIR [facility] Administration Levothyroxine Sodium 50 mcg 02/19/19 07:00 02/21/19 06:46 Synthroid - PO 50 mcg ACBK [facility] Administration Tiotropium [place] 2 puff 02/19/19 10:00 02/21/19 09:42 Spiriva Respimat IH 2 puff DAILY [facility] Administration ASSESSMENT/PLAN: 83 year-old female with a PMH significant for COPD non-compliant with meds and frequent pneumonias, PUD with h/o GI bleed (10/2017), and hypothyroidism. Admitted for community-acquired pneumonia and possible UTI. Sepsis likely secondary to community-acquired pneumonia --Temp 97.9 TMax 100.4; pulse 81 max 122, RR 20, --WBC 11.9 < 8.1 < 10.9, < 13.7k --CXR -early infiltrate right base --lactic acid 1.3 < 3.4 --ceftriaxone (day #4), azithro (day #4) --duonebs --titrate SpO2 to 94% COPD --no wheezing --duonebs --continue Spiriva --pulmonary following Dysuria --UA & UC Pending --ceftriaxone as above Hypothyroidism --continue levothyroxine FEN Fluids: after bolus fluids, NS @ 75mL/hr Electrolytes: replete as indicated Nutrition: regular diet DVT prophylaxis: subq heparin Physical therapy Pre post Dispo: Discharge home. Full code. Visit type - Emergency Visit Emergency Visit: Yes ED Registration Date: 02/18/19 Care time: The patient presented to the Emergency Department on the above date and was hospitalized for further evaluation of their emergent condition. - New Patient This patient is new to me today: Yes Date on this admission: 02/22/19 - Critical Care Critical Care patient: No - Discharge Referral Referred to [facility] Med P.C.: No
--- NOTE | 2019-02-21 15:56 | CON.PULM ---
Consult Consult Specialty:: PULMONARY Referred by:: PMD Reason for Consultation:: COPD - History of Present Illness Chief Complaint: SOB/COUGH History of Present Illness: The patient is an 83 year old female with a PMH of COPD (non compliant with medications), fibromyalgia, GI bleed, frequent pneumonias and urinary tract infections presents to the ED with several days of productive cough with greenish phlegm. Pt reports associated nausea and chest pain, which she notes is due to her constantly coughing. The patient denies shortness of breath, headache and dizziness. Denies fever, chills, vomiting, diarrhea and constipation. Denies dysuria, frequency, urgency and hematuria. 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 No: AFIB Pulmonary: Yes: COPD, Pneumonia. No: O2 Dependent Gastrointestinal: Yes: Diverticulosis (by CT scan imaging 2016), Peptic Ulcer Disease (by patient history), Other (Large hiatal hernia: by recent CTA of the abdomen performed 08/14). No: Ascites Hepatobiliary: No: Cirrhosis Renal/: Yes: Other (Nephrolithiasis) Psych: No: Addictions Rheumatology: Yes: Fibromyalgia Endocrine: Yes: Hypothyroidism - Alcohol/Substance Use Hx Alcohol Use: No - Smoking History Smoking history: Former smoker Have you smoked in the past 12 months: No If you are a former smoker, when did you quit?: 15 YEARS AGO - Social History Usual Living Arrangement: Alone () ADL: Family Assistance History of Recent Travel: No Home Medications - Allergies Allergies/Adverse Reactions: Allergies Allergy/AdvReac Type Severity Reaction Status Date / Time No Known Allergies Allergy Verified 02/18/19 15:42 - Home Medications Home Medications: Ambulatory Orders Levothyroxine [Synthroid -] 50 mcg PO DAILY 09/03/16 Tiotropium [place] [Spiriva Respimat] 2 puff IH DAILY #1 inhaler 11/22/17 Duloxetine HCl [Cymbalta] 20 mg PO DAILY 03/05/18 Family Medical History Family History: Unremarkable Review of Systems - Review of Systems Constitutional: denies: Fever Eyes: denies: Blurred Vision HENT: denies: Difficult Swallowing Neck: denies: Decreased ROM Cardiovascular: denies: Chest Pain Respiratory: reports: Cough, Exercise Intolerance, SOB on Exertion, Wheezing. denies: Hemoptysis Gastrointestinal: denies: Abdominal Pain Genitourinary: denies: Burning Physical Exam Vital Sings: Vital Signs Temperature 98.3 F 02/21/19 14:00 Pulse Rate 103 H 02/21/19 14:00 Respiratory Rate 17 02/21/19 14:00 Blood Pressure 148/67 02/21/19 14:00 O2 Sat by Pulse Oximetry (%) 91 L 02/21/19 14:00 Constitutional: Yes: Calm Eyes: Yes: EOM Intact HENT: Yes: Normocephalic Neck: Yes: Trachea Midline Cardiovascular: Yes: Regular Rate and Rhythm Respiratory: Yes: CTA Bilaterally Gastrointestinal: Yes: Normal Bowel Sounds Edema: No Labs: CBC, BMP 02/21/19 07:10 02/21/19 07:10 Imaging - Results Chest X-ray: Report Reviewed, Image Reviewed Problem List - Problems (1) COPD exacerbation Code(s): J44.1 - CHRONIC OBSTRUCTIVE PULMONARY DISEASE W (ACUTE) EXACERBATION (2) Cough Code(s): R05 - COUGH (3) Bronchitis Code(s): J40 - BRONCHITIS, NOT SPECIFIED ACUTE OR CHRONIC (4) Hypothyroidism Code(s): E03.9 - HYPOTHYROIDISM, UNSPECIFIED Qualifiers: Hypothyroidism type: acquired Qualified Code(s): E03.9 - Hypothyroidism, unspecified Assessment/Plan ?EARLY INFILTRATE RIGHT BASE A/E COPD ACUTE GOUT FMR H/O GIB H/O FREQUENT PNEUMONIAS AGREE WITH ABS/BRONCHODILATORS/O2/EARLY AMBULATION/DVT PROPHYLAXSIS SHORT COURSE MEDROL FOR GOUT ( 4 DOSES ORDERED) THANK YOU FOR THIS CONSULT Sae GARCIA MD
[2019-02-22] MEDS: LEVOTHYROXINE NA 50 MCG TABLET (FP) PO SCH (06:34)
[2019-02-22] MEDS: HEPARIN NA (PORCINE) 5,000 UNITS/ML 1ML VIAL SQ SCH (06:34)
[2019-02-22 06:58] VITALS: PULSE 80
[2019-02-22] MEDS: ALBUTEROL SO4 2.5/IPRATROPIUM 0.5 INH SOL 3 ML VIAL.NEB. NEB SCH (08:10)
[2019-02-22 08:31] LABS: BASO % 0.5 % (0-2.0); EOS % 1.8 % (0-4.5); HEMATOCRIT 40.9 % (32.4-45.2); HEMOGLOBIN 14.1 GM/dl (10.7-15.3); LYMPH % 19.8 % (8-40); MCH 28.6 pg (25.7-33.7); MCHC 34.5 g/dl (32.0-36.0); MEAN CELL VOLUME 82.9 fl (80-96); MEAN PLT VOLUME 8.3 fl (7.5-11.1); MONO % 12.3 % (3.8-10.2); NEUT % 65.6 % (42.8-82.8); PLATELET COUNT 458 K/MM3 (134-434); RBC 4.94 M/mm3 (3.60-5.2); RDW 13.5 % (11.6-15.6); WHITE BLOOD COUNT 8.4 K/mm3 (4.0-10.8)
[2019-02-22 08:35] LABS: ALBUMIN 2.7 g/dl (3.4-5.0); BILIRUBIN,TOTAL 0.8 mg/dl (0.2-1); CALCIUM 8.6 mg/dl (8.5-10); CREATININE 0.5 mg/dl (0.55-1.3); MAGNESIUM 1.7 mg/dL (1.8-2.4); POTASSIUM 3.8 mmol/L (3.5-5.1); TOT PROT 5.8 g/dl (6.4-8.2)
[2019-02-22] MEDS ORDERED: MAGNESIUM SULF 50% (8.12 MEQ/2 ML-1 GM VIAL) IVPB ONE (08:58)
[2019-02-22] MEDS ORDERED: MAGNESIUM SULFATE IN WATER 2 GM/50 ML IVPB IVPB ONE (09:00)
[2019-02-22] MEDS ORDERED: PT OWN MED DRAWER 7, Y5N ONE (09:39)
[2019-02-22] MEDS: DULoxetine HCL 20 MG CAPSULE.DR PO SCH (10:16)
[2019-02-22] MEDS: CEFTRIAXONE 1 G/50 ML PREMIX 50 ML IVPB SCH (10:17)
[2019-02-22] MEDS: TIOTROPIUM BROMIDE 2.5 MCG (SPIRIVA) RESPIMAT INHALER IH SCH (10:17)
--- NOTE | 2019-02-22 10:46 | PN ---
Progress Note (short form) - Note Progress Note: PULMONARY SUBJECTIVE IMPROVEMENT VSS/AFEBRILE ANICTERIC DISTANT S1S2 BS+ NO EDEMA LABS/MEDS/IMAGES REVIEWED - Problems (1) COPD exacerbation Code(s): J44.1 - CHRONIC OBSTRUCTIVE PULMONARY DISEASE W (ACUTE) EXACERBATION (2) Cough Code(s): R05 - COUGH (3) Bronchitis Code(s): J40 - BRONCHITIS, NOT SPECIFIED ACUTE OR CHRONIC AGREE WITH DISCHARGE PLANNING WOULD CONTINUE ORAL ABS OUTPATIENT FOR ANOTHER 5 DAYS Sae GARCIA MD Problem List - Problems (1) COPD exacerbation Code(s): J44.1 - CHRONIC OBSTRUCTIVE PULMONARY DISEASE W (ACUTE) EXACERBATION (2) Cough Code(s): R05 - COUGH (3) Bronchitis Code(s): J40 - BRONCHITIS, NOT SPECIFIED ACUTE OR CHRONIC (4) Hypothyroidism Code(s): E03.9 - HYPOTHYROIDISM, UNSPECIFIED Qualifiers: Hypothyroidism type: acquired Qualified Code(s): E03.9 - Hypothyroidism, unspecified
--- NOTE | 2019-02-22 11:38 | DS ---
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 non focal deficits LABS Laboratory Results - last 24 hr 02/22/19 02/22/19 07:15 07:15 WBC 8.4 RBC 4.94 Hgb 14.1 Hct 40.9 MCV 82.9 MCH 28.6 MCHC 34.5 RDW 13.5 Plt Count 458 H MPV 8.3 Absolute Neuts (auto) 5.5 Neutrophils % 65.6 Lymphocytes % 19.8 Monocytes % 12.3 H Eosinophils % 1.8 Basophils % 0.5 Sodium 138 Potassium 3.8 Chloride 98 Carbon Dioxide 30 Anion Gap 10 BUN 10.0 Creatinine 0.5 L Est GFR (CKD-EPI)AfAm 103.73 Est GFR (CKD-EPI)NonAf 89.50 Random Glucose 92 Calcium 8.6 Magnesium 1.7 L Total Bilirubin 0.8 AST 27 ALT 19 Alkaline Phosphatase 62 Total Protein 5.8 L Albumin 2.7 L HOSPITAL COURSE: Date of Admission:02/18/19 Date of Discharge: 02/22/19 ASSESSMENT/PLAN: 83 year-old female with a PMH significant for COPD non-compliant with meds and frequent pneumonias, PUD with h/o GI bleed (10/2017), and hypothyroidism. Admitted for community-acquired pneumonia and possible UTI. Sepsis likely secondary to community-acquired pneumonia --Temp 97.9 TMax 100.4; pulse 64 max 122, RR 16, --WBC 8.4 < 11.9 < 8.1 < 10.9, < 13.7k --CXR -early infiltrate right base --lactic acid 1.3 < 3.4 --ceftriaxone (day #5), azithro (day #5) --duonebs --titrate SpO2 to 94% COPD --no wheezing --duonebs --continue Spiriva --pulmonary following Dysuria -- UC -no growth --ceftriaxone as above Hypothyroidism --continue levothyroxine Hypomagnesemia --mg 1.7 --2gm MgSo IVPB --Recheck lab FEN Fluids: after bolus fluids, NS @ 75mL/hr Electrolytes: replete as indicated Nutrition: regular DVT prophylaxis: subq heparin Physical therapy Pre post Dispo: Discharge home. Full code. Minutes to complete discharge: 35 Discharge Summary Problems reviewed: Yes Reason For Visit: ACUTE EXACERBATION OF CHRONIC OBSTRUTIVE PULMONARY Current Active Problems COPD exacerbation (Acute) COPD exacerbation (Acute) Community acquired bacterial pneumonia (Acute) Cough (Acute) Gout (Acute) Condition: Improved - Instructions Diet, Activity, Other Instructions: You were admitted and treated for community acquired pneumonia and COPD exacerbation with 5 days of IV antibiotics and IV steroids. One prescription was sent to your pharmacy, [facility] on [address] [place] [address]. [phone] -500mg Zithromax to be taken for 5 days by mouth once a day. Begin your first dose tomorrow, Friday February 22, 2019 You have been referred to a Operations Assistant Dr. Cormier who treated you at [place]. Follow up with his office next. Referrals: Miguel Ángel Cormier MD [Staff Physician] - Luzma Santiago MD [Primary Care Provider] - Disposition: HOME - Home Medications Comprehensive Discharge Medication List: Ambulatory Orders Levothyroxine [Synthroid -] 50 mcg PO DAILY 09/03/16 Tiotropium [employer] [Spiriva Respimat] 2 puff IH DAILY #1 inhaler 11/22/17 Duloxetine HCl [Cymbalta] 20 mg PO DAILY 03/05/18 This patient is new to me today: Yes Date on this admission: 02/22/19 Emergency Visit: Yes ED Registration Date: 02/18/19 Care time: The patient presented to the Emergency Department on the above date and was hospitalized for further evaluation of their emergent condition. Critical Care patient: No - Discharge Referral Referred to [facility] No
[2019-02-22 14:14] VITALS: BP 125/60; TEMP 98.3
== END 2019-02-22 16:35 | disposition home or self-care (01) | DRG 871 ==
LOC: SUPCPDRO 14:24 → FER 14:24 → FM/S 17:46
PROVIDERS: ADMIT Internal Medicine; ATTEND Nurse Practitioner Acute Care
DX: A41.89 Other specified sepsis (principal); J18.9 Pneumonia, unspecified organism; J44.1 Chronic obstructive pulmonary disease with (acute) exacerbation; N39.0 Urinary tract infection, site not specified; J44.9 Chronic obstructive pulmonary disease, unspecified; E03.9 Hypothyroidism, unspecified; M10.9 Gout, unspecified; K57.90 Diverticulosis of intestine, part unspecified, without perforation or abscess without bleeding; M79.7 Fibromyalgia; J40 Bronchitis, not specified as acute or chronic; R30.0 Dysuria; K44.9 Diaphragmatic hernia without obstruction or gangrene; R05 Cough; Z87.11 Personal history of peptic ulcer disease; Z91.19 Patient's noncompliance with other medical treatment and regimen
CPT/HCPCS: 36415; 71046-TC-FY; 80048; 80053; 81003; 81015; 82550; 83605; 83735; 84484; 85025; 87040; 87086; 93005; 94640; 97116-GP; 97162-GP; 99283-25; J1644; J7030